=== PATIENT | female | born 1935 | race Caucasian/White ===

== ENCOUNTER → 2018-07-19 | Outpatient (CLI) | payer MEDICARE ==
[2018-07-19 18:08] LABS: BILIRUBIN,URINE NEGATIVE (NEGATIVE); CLARITY,URINE CLEAR; COLOR,URINE YELLOW; GLUCOSE, URINE (UA) NEGATIVE (NEGATIVE); KETONES,URINE TRACE (NEGATIVE); LEUKOCYTE ESTERASE ,URINE NEGATIVE (NEGATIVE); NITRITE,URINE NEGATIVE (NEGATIVE); PH,URINE 6.5 (5-9); PROTEIN,URINE NEGATIVE (NEGATIVE); SQUAMOUS EPITHELIAL CELL,UR RARE /HPF
== END ==
LOC: LAB FS 17:47
PROVIDERS: ATTEND Family Medicine
DX: N39.0 Urinary tract infection, site not specified (principal)
CPT/HCPCS: 81000

== ENCOUNTER → 2018-08-19 | Outpatient (CLI) | payer MEDICARE ==
[2018-08-19 22:13] LABS: BILIRUBIN,URINE NEGATIVE (NEGATIVE); CLARITY,URINE CLEAR; COLOR,URINE YELLOW; GLUCOSE, URINE (UA) NEGATIVE (NEGATIVE); KETONES,URINE NEGATIVE (NEGATIVE); LEUKOCYTE ESTERASE ,URINE NEGATIVE (NEGATIVE); NITRITE,URINE NEGATIVE (NEGATIVE); PROTEIN,URINE NEGATIVE (NEGATIVE); SQUAMOUS EPITHELIAL CELL,UR RARE /HPF
== END ==
LOC: LAB FS 22:01
PROVIDERS: ATTEND Family Medicine
DX: R39.15 Urgency of urination (principal)
CPT/HCPCS: 81000

== ENCOUNTER 2018-10-01 12:08 | Observation (INO) | payer MEDICARE ==
[~2018-10-01] VITALS: Ht 170.2 cm; Wt 48.3 kg
--- NOTE | 2018-10-01 12:24 | ED Syncope ---
General Stated Complaint: SYNCOPE Source of Information: Patient, EMS, RN Notes Reviewed Exam Limitations: Other (dementia) History of Present Illness Date Seen by Provider: October 01, 2018 Time Seen by Provider: 12:24 Initial Comments Patient brought to the ED p/ having an apparent syncopal episode while ambulating c/ her walker along c/ a NH aid. Patient very demented and of no assistance in providing any info, or history. Timing/Prior Episodes: No Prior History Symptoms Prior to Episode: Unknown Precipitating Factors: None Loss of Consciousness: Brief (Seconds) Current Symptoms: Back to Normal (thought to be) Allergies and Home Medications Allergies Coded Allergies: No Known Drug Allergies (Unverified , 10/01/18) Home Medications Acetaminophen 325 Mg Tablet, 650 MG PO BID, (Reported) TAKES 2 (325MG) TABLETS Acetaminophen 325 Mg Tablet, 325-650 MG PO Q6H PRN for PAIN-MILD, (Reported) Biotin 1,000 Mcg Tablet, 1,000 MCG PO DAILY, (Reported) Calcium Carbonate/Vitamin D3 1 Each Tablet, 1 TAB PO DAILY, (Reported) Citalopram Hydrobromide 20 Mg Tablet, 20 MG PO DAILY, (Reported) Digoxin 125 Mcg Tablet, 125 MCG PO DAILY, (Reported) Divalproex Sodium 125 Mg Cap, 125 MG PO BID, (Reported) Levalbuterol Tartrate 15 Gm Hfa.aer.ad, 2 PUFF INH Q8H PRN for SHORTNESS OF BREATH, (Reported) Memantine HCl 5 Mg Tablet, 5 MG PO BID, (Reported) Mirtazapine 15 Mg Tablet, 15 MG PO DAILY, (Reported) Multivitamin/Iron/Folic Acid 1 Each Tablet, 1 TAB PO DAILY, (Reported) Olanzapine 10 Mg Tablet, 10 MG PO HS, (Reported) Vit A/Vit C/Vit E/Zinc/Copper 1 Each Capsule, 1 CAP PO DAILY, (Reported) Patient Home Medication List Home Medication List Reviewed: Yes Review of Systems Constitutional: see HPI Cardiovascular: see HPI, syncope : No Physical Exam Vital Signs Vital Signs - First Documented 10/01/18 12:17 Temp 96.6 Pulse 70 Resp 12 B/P (MAP) 122/46 (71) Pulse Ox 96 O2 Delivery Room Air Capillary Refill : Height, Weight, BMI Height: '" Weight: lbs. oz. kg; BMI Method: General Appearance: No Apparent Distress, WD/WN HEENT: PERRL/EOMI, Pharynx Normal Cardiovascular: Regular Rate, Rhythm Respiratory: No Respiratory Distress Neurologic/Psychiatric: Alert; No Oriented x3; No Motor/Sensory Deficits, Normal Mood/Affect (per family) Motor/Sensory: No Motor Deficit, No Sensory Deficit Skin: Warm/Dry Progress/Results/Core Measures Results/Orders Lab Results Laboratory Tests Test 10/01/18 13:00 10/01/18 13:19 Range/Units White Blood Count 10.0 4.3-11.0 10^3/uL Red Blood Count 4.10 L 4.35-5.85 10^6/uL Hemoglobin 12.6 11.5-16.0 G/DL Hematocrit 39 35-52 % Mean Corpuscular Volume 95 80-99 FL Mean Corpuscular Hemoglobin 31 25-34 PG Mean Corpuscular Hemoglobin Concent 32 32-36 G/DL Red Cell Distribution Width 12.5 10.0-14.5 % Platelet Count 193 130-400 10^3/uL Mean Platelet Volume 9.7 7.4-10.4 FL Neutrophils (%) (Auto) 80 H 42-75 % Lymphocytes (%) (Auto) 14 12-44 % Monocytes (%) (Auto) 4 0-12 % Eosinophils (%) (Auto) 1 0-10 % Basophils (%) (Auto) 1 0-10 % Neutrophils # (Auto) 8.0 H 1.8-7.8 X 10^3 Lymphocytes # (Auto) 1.4 1.0-4.0 X 10^3 Monocytes # (Auto) 0.4 0.0-1.0 X 10^3 Eosinophils # (Auto) 0.1 0.0-0.3 10^3/uL Basophils # (Auto) 0.1 0.0-0.1 10^3/uL Sodium Level 142 135-145 MMOL/L Potassium Level 4.8 3.6-5.0 MMOL/L Chloride Level 97 L 98-107 MMOL/L Carbon Dioxide Level 33 H 21-32 MMOL/L Anion Gap 12 5-14 MMOL/L Blood Urea Nitrogen 30 H 7-18 MG/DL Creatinine 1.16 0.60-1.30 MG/DL Estimat Glomerular Filtration Rate 45 BUN/Creatinine Ratio 26 Glucose Level 100 70-105 MG/DL Calcium Level 10.3 H 8.5-10.1 MG/DL Corrected Calcium 10.5 H 8.5-10.1 MG/DL Magnesium Level 1.5 L 1.8-2.4 MG/DL Total Bilirubin 0.7 0.1-1.0 MG/DL Aspartate Amino Transf (AST/SGOT) 31 5-34 U/L Alanine Aminotransferase (ALT/SGPT) 29 0-55 U/L Alkaline Phosphatase 68 40-136 U/L Troponin T 23 H <=10 NG/L Total Protein 7.0 6.4-8.2 GM/DL Albumin 3.8 3.2-4.5 GM/DL Digoxin Level 1.58 0.80-2.00 NG/ML Valproic Acid (Depakene) Level 31.8 L 50.0-100.0 UG/ML Urine Color YELLOW Urine Clarity CLEAR Urine pH 7.0 5-9 Urine Specific [place] 1.015 L 1.016-1.022 Urine Protein 1+ H NEGATIVE Urine Glucose (UA) NEGATIVE NEGATIVE Urine Ketones 1+ H NEGATIVE Urine Nitrite NEGATIVE NEGATIVE Urine Bilirubin NEGATIVE NEGATIVE Urine Urobilinogen 0.2 NORMAL MG/DL Urine Leukocyte Esterase NEGATIVE NEGATIVE Urine RBC (Auto) NEGATIVE NEGATIVE Urine RBC 0-2 /HPF Urine WBC 0-2 /HPF Urine Squamous Epithelial Cells 0-2 /HPF Urine Crystals PRESENT H /LPF Urine Amorphous Sediment FEW JESUS PHOSPHATE H /LPF Urine Bacteria TRACE /HPF Urine Casts NONE /LPF Urine Mucus NONE /LPF Urine Other /HPF Urine Culture Indicated NO My Orders Orders - JOHNATHAN HUNTER DO Ct Head/Cervical Spine Wo (10/01/18 12:24) Chest 1 View Ap/Pa Only (10/01/18 12:24) Ekg Tracing (10/01/18 12:24) Monitor-Rhythm Ecg Trace Only (10/01/18 12:24) Cbc With Automated Diff (10/01/18 12:24) Comprehensive Metabolic Panel (10/01/18 12:24) Magnesium (10/01/18 12:24) Ua Culture If Indicated (10/01/18 12:24) Troponin T (10/01/18 12:24) Digoxin (10/01/18 13:24) Valproic Acid (10/01/18 13:24) Vital Signs/I&O 10/01/18 12:17 Temp 96.6 Pulse 70 Resp 12 B/P (MAP) 122/46 (71) Pulse Ox 96 O2 Delivery Room Air Initial ECG Impression Date: October 01, 2018 Initial ECG Impression Time: 12:30 Initial ECG Rate: 71 Initial ECG Rhythm: Normal Sinus Initial ECG Intervals LBBB Initial ECG Comparisson: No Previous ECG Available Diagnostic Imaging Diagonstic Imaging: Xray, CT Plain Films/CT/US/NM/MRI: chest (see report), head (nothing acute) Departure Impression Primary Impression: Syncope and collapse Additional Impressions: Elevated troponin Hypomagnesemia Dementia LBBB (left bundle branch block) Disposition: ADMITTED INPATIENT Condition: Stable Transfer Time Spoke to Accepting Phy: 15:05 Transfer Progress Notes Discussed the patient c/ both Dr. Cavanaugh (accepting Hospitalist), and Dr. Turcios (consulting Hat Sizer). Transfer Facility: [facility] Method of Transfer: EMS Departure-Patient Inst. Referrals: TERRI AVILES MD (PCP/Family) Primary Care Physician JOHNATHAN HUNTER DO October 01, 2018 12:24
--- OUTSIDE RECORDS SUMMARY | 2018-10-01 12:25 | XMS REPORT | Continuity of Care Document ---
Author Organization Unknown Address Unknown Allergies There is no data. Medications There is no data. Problems Date Dx Coded Attending Type Code Diagnosis Diagnosed By 10/23/2014 MAHESH WELCH MD, Ot V45.4 10/23/2014 MAHESH WELCH MD, Ot V67.09 10/24/2014 MAHESH WELCH MD, Ot V45.4 10/24/2014 MAHESH WELCH MD Ot V67.09 07/21/2018 TERRI AVILES MD Ot N39.0 URINARY TRACT INFECTION, SITE NOT SPECIF 08/11/2018 TERRI AVILES MD Ot N39.0 URINARY TRACT INFECTION, SITE NOT SPECIF 08/19/2018 MAHESH WELCH MD Ot V45.4 ARTHRODESIS STATUS 08/19/2018 MAHESH WELCH MD Ot V67.09 SURGERY FOLLOW-UP, OTHER SURGERY 08/19/2018 TERRI AVILES MD, Ot N39.0 URINARY TRACT INFECTION, SITE NOT SPECIF 08/20/2018 TERRI AVILES MD Ot R39.15 URGENCY OF URINATION 09/19/2018 TERRI AVILES MD Ot R39.15 URGENCY OF URINATION 09/19/2018 TERRI AVILES MD Ot R39.15 URGENCY OF URINATION Procedures There is no data. Results Test Result Range Complete urinalysis with reflex to culture - 07/19/18 17:25 Urine color determination YELLOW NRG Urine clarity determination CLEAR NRG Urine pH measurement by test strip 6.5 5-9 Specific gravity of urine by test strip 1.010 1.016- 1.022 Urine protein assay by test strip, semi-quantitative NEGATIVE NEGATIVE Urine glucose detection by automated test strip NEGATIVE NEGATIVE Erythrocytes detection in urine sediment by light microscopy NEGATIVE NEGATIVE Urine ketones detection by automated test strip TRACE NEGATIVE Urine nitrite detection by test strip NEGATIVE NEGATIVE Urine total bilirubin detection by test strip NEGATIVE NEGATIVE Urine urobilinogen measurement by automated test strip (mass/volume) 1.0 mg/dL NORMAL Urine leukocyte esterase detection by dipstick NEGATIVE NEGATIVE Automated urine sediment erythrocyte count by microscopy (number/high power field) NONE NRG Automated urine sediment leukocyte count by microscopy (number/high power field ) NONE NRG Bacteria detection in urine sediment by light microscopy NONE NRG Squamous epithelial cells detection in urine sediment by light microscopy RARE NRG Crystals detection in urine sediment by light microscopy NONE NRG Casts detection in urine sediment by light microscopy NONE NRG Mucus detection in urine sediment by light microscopy NEGATIVE NRG Complete urinalysis with reflex to culture NO NRG Complete urinalysis with reflex to culture - 08/19/18 22:00 Urine color determination YELLOW NRG Urine clarity determination CLEAR NRG Urine pH measurement by test strip 7.0 5-9 Specific gravity of urine by test strip 1.010 1.016- 1.022 Urine protein assay by test strip, semi-quantitative NEGATIVE NEGATIVE Urine glucose detection by automated test strip NEGATIVE NEGATIVE Erythrocytes detection in urine sediment by light microscopy NEGATIVE NEGATIVE Urine ketones detection by automated test strip NEGATIVE NEGATIVE Urine nitrite detection by test strip NEGATIVE NEGATIVE Urine total bilirubin detection by test strip NEGATIVE NEGATIVE Urine urobilinogen measurement by automated test strip (mass/volume) 1.0 mg/dL NORMAL Urine leukocyte esterase detection by dipstick NEGATIVE NEGATIVE Automated urine sediment erythrocyte count by microscopy (number/high power field) NONE NRG Automated urine sediment leukocyte count by microscopy (number/high power field ) NONE NRG Bacteria detection in urine sediment by light microscopy NONE NRG Squamous epithelial cells detection in urine sediment by light microscopy RARE NRG Crystals detection in urine sediment by light microscopy NONE NRG Casts detection in urine sediment by light microscopy NONE NRG Mucus detection in urine sediment by light microscopy NEGATIVE NRG Complete urinalysis with reflex to culture NO NRG Encounters ACCT No. Visit Date/Time Discharge Status Pt. Type Provider Facility Loc./Unit Complaint [id number] 08/19/2018 22:01:00 08/19/2018 23:59:59 CLS Outpatient TERRI AVILES MD [facility] LAB FS URINARY [id number] 07/19/2018 17:47:00 07/19/2018 23:59:59 CLS Outpatient TERRI AVILES MD [facility] LAB FS UTI [id number] 09/07/2014 12:41:00 09/07/2014 23:59:59 CLS Outpatient REBEKAH FRIED, MAHESH [facility] RAD STATUS POST LUMBAR FUSION
--- OUTSIDE RECORDS SUMMARY | 2018-10-01 12:25 | XMS REPORT | Clinical Summary ---
Author Author [facility] Organization [facility] Address Unknown Phone Unavailable Care Team Providers Care Dermatologist Name Role Phone PCP Unavailable Allergies Not on File Current Medications Not on file Active Problems Not on file Social History Tobacco Use Types Packs/Day Years Used Date Never Assessed Sex Assigned at Date Recorded Not on file Last Filed Vital Signs Not on file Plan of Treatment Not on file Results Not on filefrom Last 3 Months
[2018-10-01 13:17] LABS: HEMATOCRIT 39 % (35-52); HEMOGLOBIN 12.6 G/DL (11.5-16.0); MEAN CORPUSCULAR HEMOGLOBIN 31 PG (25-34); MEAN CORPUSCULAR HGB CONC 32 G/DL (32-36); MEAN CORPUSCULAR VOLUME 95 FL (80-99); MEAN PLATELET VOLUME 9.7 FL (7.4-10.4); PLATELET COUNT 193 10^3/uL (130-400); RED CELL DISTRIBUTION WIDTH 12.5 % (10.0-14.5)
[2018-10-01 13:18] LABS: BASOPHILS # (AUTO) 0.1 10^3/uL (0.0-0.1); BASOPHILS % (AUTO) 1 % (0-10); EOSINOPHILS # (AUTO) 0.1 10^3/uL (0.0-0.3); EOSINOPHILS % (AUTO) 1 % (0-10); LYMPHOCYTES # (AUTO) 1.4 X 10^3 (1.0-4.0); LYMPHOCYTES % (AUTO) 14 % (12-44); MONOCYTES # (AUTO) 0.4 X 10^3 (0.0-1.0); MONOCYTES % (AUTO) 4 % (0-12); NEUTROPHILS % (AUTO) 80 % (42-75)
--- NOTE | 2018-10-01 13:19 | Diagnostic Imaging Report ---
EXAMINATION: Portable erect AP chest at 12:45 p.m. INDICATION: Syncope. COMPARISON: There are no prior studies available for comparison. FINDINGS: The heart size is within normal limits. There is no sign of overt failure, pneumonia, or of a significant pleural effusion. However, there are vague areas of increased density overlying both upper lobes, particularly the right upper lobe. The kathleen also seem to be slightly retracted superiorly. These areas of abnormal density involving the upper lobes may be secondary to scar formation. There is no clear evidence for a neoplastic mass. Even so, unless there are previous chest exams available to demonstrate that these findings are stable, then CT of the chest would be recommended for further study. The mediastinum is not widened. The osseous structures are intact. There are numerous surgical clips overlying the gastroesophageal junction. Bilateral pedicle screws are also seen overlying the thoracolumbar junction. IMPRESSION: 1. There is no evidence for an acute cardiopulmonary abnormality. 2. The vague areas of increased density overlying the lung apices may be secondary to scar formation alone. The kathleen do seem to be slightly retracted superiorly, however. Additional considerations and recommendations as above. Dictated by: Dictated on workstation # [id number]
--- NOTE | 2018-10-01 13:38 | Diagnostic Imaging Report ---
PROCEDURE: CT head and CT cervical spine without contrast. TECHNIQUE: Multiple contiguous axial images were obtained through the brain and cervical spine without the use of intravenous contrast. Sagittal and coronal reformations through the cervical spine were then performed. Auto Exposure Controls were utilized during the CT exam to meet ALARA standards for radiation dose reduction. INDICATION: Syncope COMPARISON: There are no prior studies available for comparison. CT OF THE HEAD: There is no mass, shift of the midline or hemorrhage to suggest an acute intracranial abnormality. There is no sign of an asymmetric hyperdense vessel. The ventricles are dilated. The size of the ventricles is most likely due to the underlying cortical atrophy. Normal pressure hydrocephalus should also be considered however. The bone windows show no evidence for a fracture or for a destructive lesion. The orbits are symmetrical and within normal limits. The sinuses are generally clear. IMPRESSION: 1. There is no evidence for an acute intracranial abnormality. 2. If clinical concern regarding an underlying abnormality persists, then MRI would be recommended for further study. 3. The size of the ventricles is most likely due to the underlying cortical atrophy. However normal pressure hydrocephalus should also be considered. If further evaluation for NPH is desired, then a nuclear medicine cisternogram would be recommended. CT OF THE CERVICAL SPINE: The reconstructed parasagittal images show moderate degenerative disc and bony disease at C3-4 and fairly severe degenerative disc and bony disease at C6-7. The thecal sac seems fairly generous however and there is no evidence for a high-grade central stenosis at any level. There does appear to be bony overgrowth of the facets from C3 to C7, primarily on the right. There is no fracture or acute bony abnormality evident. There is no sign of retropharyngeal edema. The thyroid gland is unremarkable. There is considerable scar formation in both lung apices. This most likely accounts for the retraction of the kathleen superiorly on the plain film exam. There is no clear evidence for a mass. Even so, of the chest would be recommended for further evaluation. . IMPRESSION: 1. There is no evidence for an acute bony abnormality. There is no sign of a high-grade central stenosis either. 2. There is considerable scar formation in both lung apices. Considerations as above. The results were discussed with Dr. Bhatia in the ER. Dictated by: Dictated on workstation # [id number]
[2018-10-01 13:43] LABS: CLARITY,URINE CLEAR; COLOR,URINE YELLOW; GLUCOSE, URINE (UA) NEGATIVE (NEGATIVE); PROTEIN,URINE 1+ (NEGATIVE)
[2018-10-01 13:44] LABS: AMORPHOUS SEDIMENT,UR FEW AMOR PHOSPHATE /LPF; BACTERIA,URINE TRACE /HPF; BILIRUBIN,URINE NEGATIVE (NEGATIVE); KETONES,URINE 1+ (NEGATIVE); LEUKOCYTE ESTERASE ,URINE NEGATIVE (NEGATIVE); NITRITE,URINE NEGATIVE (NEGATIVE); RBC,URINE 0-2 /HPF; SQUAMOUS EPITHELIAL CELL,UR 0-2 /HPF; UROBILINOGEN,URINE 0.2 MG/DL (NORMAL); WBC,URINE 0-2 /HPF
[2018-10-01 13:54] LABS: POTASSIUM 4.8 MMOL/L (3.6-5.0)
[2018-10-01 13:55] LABS: BILIRUBIN,TOTAL 0.7 MG/DL (0.1-1.0); CALCIUM 10.3 MG/DL (8.5-10.1); CREATININE SERUM 1.16 MG/DL (0.60-1.30); MAGNESIUM 1.5 MG/DL (1.8-2.4)
[2018-10-01 13:56] LABS: ALBUMIN 3.8 GM/DL (3.2-4.5)
[2018-10-01 15:04] LABS: VALPROIC ACID 31.8 UG/ML (50.0-100.0)
--- NOTE | 2018-10-01 17:35 | NUR ---
ADRIAN SALEH admitted to room 407-1, with an admitting diagnosis of SYNCOPE, on 10/01/[address] [facility] via EMS, accompanied by EMS STAFF. ADRIAN SALEH introduced to surroundings, call light, bed controls, phone, TV, temperature control, lights, meal times, smoking policy, visitor policy, side rail policy, bathrooms and showers. Patient Rights given to patient in the handbook. ADRIAN SALEH verbalizes understanding that [facility] is not responsible for the loss or damage to any personal effects or valuables that are kept in the patients posession during their hospitalization. ADRIAN SALEH verbalizes understanding of Interdisciplinary Patient Education. Patient and/or family were informed about the Rapid Response Team and its purpose.
[2018-10-01 17:47] VITALS: BP_SYST 142; BP_SYST 178; BP_DIAS 68; BP_DIAS 76
[2018-10-01] MEDS ORDERED: MAGNESIUM 1 GM/100 ML IVPB 100 ML IV ONE (18:15)
[2018-10-01] MEDS ORDERED: CATHETER FLUSH 10 ML SYR IV PRN (18:15)
[2018-10-01] MEDS ORDERED: HALOPERIDOL 5 MG/ML (HALDOL) AMP IM PRN (18:30)
[2018-10-01] MEDS ORDERED: LORazepam INJ 2 MG/ML (ATIVAN) VIAL IVP PRN (18:30)
[2018-10-01] MEDS ORDERED: NITROGLYCERIN 2% OINT 1 GM UNIT DOSE PACKET TOP PRN (18:30)
[2018-10-01] MEDS ORDERED: LORazepam INJ 2 MG/ML (ATIVAN) VIAL IM PRN (18:30)
[2018-10-01] MEDS ORDERED: ACETAMINOPHEN 325 MG TABLET PO PRN (18:30)
[2018-10-01] MEDS ORDERED: fentaNYL INJECTION 100 MCG/2 ML AMP IVP PRN (18:30)
[2018-10-01] MEDS: NS IV 1000 ML 1,000 ML IV SCH (19:26)
[2018-10-01 20:36] VITALS: BP 155/81
[2018-10-02 00:29] VITALS: BP 156/67
[2018-10-02 04:00] VITALS: BP 153/85
[2018-10-02 05:48] LABS: BASOPHILS % (AUTO) 0 % (0-10); EOSINOPHILS # (AUTO) 0.1 10^3/uL (0.0-0.3); EOSINOPHILS % (AUTO) 1 % (0-10); HEMATOCRIT 36 % (35-52); HEMOGLOBIN 11.7 G/DL (11.5-16.0); LYMPHOCYTES # (AUTO) 0.8 X 10^3 (1.0-4.0); LYMPHOCYTES % (AUTO) 10 % (12-44); MEAN CORPUSCULAR HEMOGLOBIN 30 PG (25-34); MEAN CORPUSCULAR HGB CONC 33 G/DL (32-36); MEAN CORPUSCULAR VOLUME 94 FL (80-99); MEAN PLATELET VOLUME 9.7 FL (7.4-10.4); MONOCYTES # (AUTO) 0.6 X 10^3 (0.0-1.0); MONOCYTES % (AUTO) 8 % (0-12); NEUTROPHILS # (AUTO) 6.8 X 10^3 (1.8-7.8); NEUTROPHILS % (AUTO) 81 % (42-75); PLATELET COUNT 184 10^3/uL (130-400); RED CELL DISTRIBUTION WIDTH 12.7 % (10.0-14.5); WHITE BLOOD COUNT 8.4 10^3/uL (4.3-11.0)
[2018-10-02 06:05] LABS: ALBUMIN 3.8 GM/DL (3.2-4.5); BILIRUBIN,TOTAL 0.6 MG/DL (0.1-1.0); CALCIUM 9.5 MG/DL (8.5-10.1); POTASSIUM 4.3 MMOL/L (3.6-5.0); TOTAL PROTEIN 6.4 GM/DL (6.4-8.2)
[2018-10-02 08:00] VITALS: BP 170/77
[2018-10-02] MEDS: NS IV 1000 ML 1,000 ML IV SCH (08:52)
--- NOTE | 2018-10-02 09:53 | Consultation-Cardiology ---
HPI-Cardiology Cardiology Consultation: Date of Consultation 10/02/18 Date of Admission Attending Physician Jennifer Galo DO Admitting Physician Girish Sauer MD Consulting Physician Antione TURCIOS MD HPI: Time Seen by a Provider: 09:30 Chief Complaint: Syncope This is a 82-year-old lady who is a resident of [facility] who presented with an episode of syncope. She has history of dementia. Due to dementia and history is very limited. It is based on reviewing all the medical records available to me. No known past medical or cardiac history. Review of Systems-Cardiology Review of Systems Constitutional: As described under HPI; No As described under HPI, No no symptoms reported, No chills, No fever, No lightheadedness Eyes: No As described under HPI, No no symptoms reported, No blindness, No blurred vision, No contact lenses, No drainage, No decreased acuity, No foreign body sensation, No pain, No vision change Ears/Nose/Throat: No As described under HPI, No no symptoms reported, No chronic hearing loss, No ear discharge, No ear pain, No nasal drainage, No ulcerations Respiratory: No no symptoms reported; As described under HPI; No As described under HPI, No cough, No orthopnea, No shortness of breath, No SOB with excertion Cardiovascular: No no symptoms reported; As described under HPI; No As described under HPI, No chest pain, No edema, No irregular heart rate, No lightheadedness, No palpitations; syncope Gastrointestinal: No no symptoms reported, No As described under HPI, No abdomen distended, No abdominal pain, No blood streaked bowels, No constipation , No diarrhea, No nausea, No vomiting, No stool coloration changes Genitourinary: No As described under HPI, No burning, No dysuria, No discharge , No frequency, No flank pain, No hematuria, No urgency : No Skin: No rash, No skin related problems, No ulcerations Psychiatric/Neurological: No anxiety, No depression, No seizure, No focal weakness, No syncope Hematologic: No bleeding abnormalities DFT-Mcimgo-Jupacv Hx Patient Social History Alcohol Use: Denies Use Recreational Drug Use: No Smoking Status: Never a Smoker 2nd Hand Smoke Exposure: No Recent Foreign Travel: No Recent Infectious Disease Expo: No Hospitalization with Isolation: Denies Immunizations Up To Date Date of Pneumonia Vaccine: Feb 14, 2017 Past Medical History PMH As described under Assessment. Allergies and Home Medications Allergies Coded Allergies: No Known Drug Allergies (Unverified , 10/01/18) Home Medications Acetaminophen 325 Mg Tablet, 650 MG PO BID, (Reported) TAKES 2 (325MG) TABLETS Acetaminophen 325 Mg Tablet, 325-650 MG PO Q6H PRN for PAIN-MILD, (Reported) Biotin 1,000 Mcg Tablet, 1,000 MCG PO DAILY, (Reported) Calcium Carbonate/Vitamin D3 1 Each Tablet, 1 TAB PO DAILY, (Reported) Citalopram Hydrobromide 20 Mg Tablet, 20 MG PO DAILY, (Reported) Digoxin 125 Mcg Tablet, 125 MCG PO DAILY, (Reported) Divalproex Sodium 125 Mg Cap, 125 MG PO BID, (Reported) Levalbuterol Tartrate 15 Gm Hfa.aer.ad, 2 PUFF INH Q8H PRN for SHORTNESS OF BREATH, (Reported) Memantine HCl 5 Mg Tablet, 5 MG PO BID, (Reported) Mirtazapine 15 Mg Tablet, 15 MG PO DAILY, (Reported) Multivitamin/Iron/Folic Acid 1 Each Tablet, 1 TAB PO DAILY, (Reported) Olanzapine 10 Mg Tablet, 10 MG PO HS, (Reported) Vit A/Vit C/Vit E/Zinc/Copper 1 Each Capsule, 1 CAP PO DAILY, (Reported) Patient Home Medication List Home Medication List Reviewed: Yes Physical Exam-Cardiology Physical Exam Vital Signs/I&O 10/02/18 10/02/18 10/02/18 10/02/18 07:00 08:00 08:00 12:00 Temp 97.9 98.0 Pulse 80 77 82 Resp 18 18 B/P (MAP) 170/77 (108) 190/88 (122) Pulse Ox 96 96 O2 Delivery Room Air Room Air Room Air 10/02/18 12:57 Pulse 92 10/02/18 00:00 Intake Total 240 ml Balance 240 ml Capillary Refill : Less Than 3 Seconds Constitutional: appears stated age; No apparent distress; well-developed, well- nourished HEENT: PERRL; No discharge; hearing is well preserved, oral hygience is good; No ulceration, No xanthelasmas are seen Neck: No carotid bruit; carotid pulses are 2 + bilaterally Respiratory: No accessory muscle use, No respiratory distress, No chest tender , No chest expansion is symmetric; chest is bilaterally symmetric; No lungs clear to percussion; lungs clear to auscultation; No crackles, No rhonchi, No rales, No stridor, No wheezing, No pleural rub, No other Cardiovascular: regular rate-rhythm; No irregularly irregular, No extra beats, No parasternal heave is noted, No JVD, No edema, No bradycardia, No tachycardia , No point of maximal impulse, No cardiac thrills are palpable; S1 and S2; No gallop/S3, No gallop/S4, No diastolic murmur, No systolic murmur, No friction rub, No click, No other Gastrointestinal: No tender, No soft, No round, No distended, No pulsatile mass , No organomegaly, No guarding, No rebound, No tenderness, No hernia, No mass, No audible bowel sounds, No abnormal bowel sounds, No abdominal bruits, No spleenomegaly, No other Rectal: deferred Extremities: No normal range of motion, No non-tender, No normal inspection, No pedal edema, No calf tenderness, No normal capillary refill, No pelvis stable , No calf tenderness, No inflammation, No pedal edema, No slow capillary refill , No swelling, No other, No abrasion, No clubbing, No cyanosis, No ecchymosis, No laceration, No no lower extremity edema bilateral, No significant edema, No tenderness, No wound Neurologic/Psychiatric: no motor/sensory deficits, alert, disoriented x 3 Skin: No normal color, No warm/dry, No cyanosis, No cool, No diaphoresis, No damp, No ecchymosis, No jaundice, No mottled, No pallor, No rash, No tattoos/ piercings, No ulcerations, No rash on exposed areas, No ulcerations on exposed areas, No other Data Review Labs Laboratory Tests 10/01/18 18:05: Troponin I < 0.028 10/02/18 05:10: Sodium Level 141, Potassium Level 4.3, Chloride Level 101, Carbon Dioxide Level 29, Anion Gap 11, Blood Urea Nitrogen 30H, Creatinine 1.00, Estimat Glomerular Filtration Rate 53, BUN/Creatinine Ratio 30, Glucose Level 96, Calcium Level 9.5 , Corrected Calcium 9.7, Total Bilirubin 0.6, Aspartate Amino Transf (AST/SGOT) 27, Alanine Aminotransferase (ALT/SGPT) 27, Alkaline Phosphatase 65, Total Protein 6.4, Albumin 3.8 10/02/18 05:25: White Blood Count 8.4, Red Blood Count 3.84L, Hemoglobin 11.7, Hematocrit 36, Mean Corpuscular Volume 94, Mean Corpuscular Hemoglobin 30, Mean Corpuscular Hemoglobin Concent 33, Red Cell Distribution Width 12.7, Platelet Count 184, Mean Platelet Volume 9.7, Neutrophils (%) (Auto) 81H, Lymphocytes (%) (Auto) 10L , Monocytes (%) (Auto) 8, Eosinophils (%) (Auto) 1, Basophils (%) (Auto) 0, Neutrophils # (Auto) 6.8, Lymphocytes # (Auto) 0.8L, Monocytes # (Auto) 0.6, Eosinophils # (Auto) 0.1, Basophils # (Auto) 0.0 A/P-Cardiology Assessment/Admission Diagnosis Syncope, Dementia, Hypomagnesemia, Borderline Positive troponin, Left bundle branch block Plan Syncope, unclear etiology. Because of dementia difficult to take a history. Echocardiogram shows normal LV size and function. Dementia, deferred to the primary team. Hypomagnesemia, medication replacement is recommended. Borderline Positive troponin, borderline positive in [place] ER however troponin in our hospital are negative. Left bundle branch block, no records are available with suggest whether this is new left bundle branch block or old. However there is no evidence of an acute anterior AR. The other question is there in a patient with syncope who has left bundle branch block we can consider a pacemaker. However the patient has advanced dementia and no family is available to discuss. I will defer to the primary team and outpatient physicians. I'll be happy to assist if requested by the primary team and patient's primary care physician at the nursing facility. Thank you for your consultation. Please call me if you have any questions. Alejandro Turcios MD, FACP, FACC, FSCAI, FHRS, CCDS Interventional Cardiology Cardiac Electrophysiology Vascular Medicine and Endovascular Interventions Clinical Quality Measures DVT/VTE Risk/Contraindication: Risk Factor Score Per Nursin RFS Level Per Nursing on Admit: 4+=Very High Antione TURCIOS MD October 02, 2018 9:53 am
--- NOTE | 2018-10-02 10:01 | Short Stay Summary-Hospitalist ---
History of Present Illness HPI/Chief Complaint CC: Syncope HPI: This is an 82yoWF very severely demented who resides at a [facility], was sent to the ER at [place] due to Syncopal episode when she was walking to the lunch room. Severe dementia precludes any other details. Family requested her to be evaluated and she has since been admitted. All troponins were negative and due to the severity of her dementia there is not any type of aggressive cardiac care required at this time due to the fact of the significant dementia. She in reality is a hospice candidate. I had to give Ativan and Haldol due to the agitation. All other workup was negative. She will be discharged. Source: old records Exam Limitations: other (dementia) Date Seen 10/02/18 Time Seen by a Provider: 09:00 Attending Physician Jennifer Galo Pankaj K MD Referring Physician Date of Admission October 01, 2018 at 15:15 Home Medications & Allergies Home Medications Reviewed patient Home Medication Reconciliation performed by pharmacy medication reconciliations field service technician and/or nursing. Patients Allergies have been reviewed. Allergies Allergies Coded Allergies No Known Drug Allergies (Unverified10/01/18) Past Hpzfgrl-Dkoxou-Xafske Hx Past Med/Social Hx: Reviewed Nursing Past Med/Soc Hx, Reviewed and Corrections made Patient Social History Marrital Status: single Alcohol Use: Denies Use Recreational Drug Use: No Smoking Status: Never a Smoker 2nd Hand Smoke Exposure: No Recent Foreign Travel: No Contact w/other who traveled: No Recent Hopitalizations: No Recent Infectious Disease Expo: No Immunizations Up To Date Date of Pneumonia Vaccine: Feb 14, 2017 Seasonal Allergies Seasonal Allergies: Yes Past Medical History Cardiac: Atrial Fibrillation Neurological: Dementia Gastrointestinal: Ulcer Cancer: Skin History of Blood Disorders: No Review of Systems Constitutional: other (unobtainable) Physical Exam Physical Exam Vital Signs Vital Signs - First Documented 10/01/18 12:17 Temp 96.6 Pulse 70 Resp 12 B/P (MAP) 122/46 (71) Pulse Ox 96 O2 Delivery Room Air Capillary Refill : Less Than 3 Seconds Height, Weight, BMI Height: 5'7.00" Weight: 106lbs. 9.0oz. 48.604491fq; BMI Method:Actual General Appearance: No Apparent Distress, WD/WN, Chronically ill, Thin HEENT: PERRL/EOMI, Pharynx Normal Respiratory: Lungs Clear, Normal Breath Sounds, No Accessory Muscle Use, No Respiratory Distress Cardiovascular: Regular Rate, Rhythm, No Edema Neurologic/Psychiatric: Alert; No Oriented x3; No Motor/Sensory Deficits, Normal Mood/Affect (per family), Disoriented Skin: Warm/Dry Results Results/Procedures Labs Laboratory Tests 10/01/18 13:00 10/02/18 05:10 10/02/18 05:25 Patient resulted labs reviewed. Short Stay Diagnosis Discharge Diagnosis-Short Stay Admission Diagnosis Syncope Severe dementia Final Discharge Diagnosis Syncope Severe dementia Conclusion Plan Plan: DC if ok with Dr Turcios Diagnosis/Problems Diagnosis/Problems (1) Syncope and collapse Status: Acute (2) Dementia Status: Acute Qualifiers: Qualified Codes: G30.9 - Alzheimer's disease, unspecified; F02.81 - Dementia in other diseases classified elsewhere with behavioral disturbance Clinical Quality Measures DVT/VTE Risk/Contraindication: Risk Factor Score Per Nursin RFS Level Per Nursing on Admit: 4+=Very High JENNIFER GALO DO October 02, 2018 10:01
[2018-10-02] MEDS ORDERED: CALC1TAB94 PO (10:18)
[2018-10-02] MEDS ORDERED: DIVA125C PO (10:18)
[2018-10-02] MEDS ORDERED: DIGO125T18 PO (10:18)
[2018-10-02] MEDS ORDERED: MEMA5TAB16 PO (10:18)
[2018-10-02] MEDS ORDERED: ACET325T38 PO ×2 (10:18)
[2018-10-02] MEDS ORDERED: NFBIOT1000 PO (10:18)
[2018-10-02] MEDS ORDERED: MULT-983 PO (10:18)
[2018-10-02] MEDS ORDERED: VIT1CAPS33 PO (10:18)
[2018-10-02] MEDS ORDERED: MIRT15TA6 PO (10:18)
[2018-10-02] MEDS ORDERED: CITA20TA9 PO (10:18)
[2018-10-02] MEDS ORDERED: OLAN10TA3 PO (10:18)
[2018-10-02] MEDS ORDERED: NF-XOP-HFA INH (10:18)
--- NOTE | 2018-10-02 10:25 | NUR ---
UPDATED MED REC WITH PHYSICIAN'S ORDERS FROM [facility].
[2018-10-02 12:00] VITALS: BP 190/88
--- NOTE | 2018-10-02 14:59 | NUR ---
ECHO IS NORMAL. VIRAJ SAID OK TO DC FROM HIS STAND POINT. VERIFIED WITH DR MOON.
--- NOTE | 2018-10-02 15:00 | NUR ---
[facility] NOTIFIED OF PATIENT DISCHARGE. THEY ARE SENDING TRANSPORTATION. REPORT GIVEN TO RN.
[2018-10-02 16:05] VITALS: BP 190/88
--- NOTE | 2018-10-02 16:05 | NUR ---
IV REMOVED WITH CATHETER TIP INTACT. PATIENT'S GRANDDAUGHTER IS PRESENT TO PICK PATIENT UP. PATIENT DRESSED AND BELONGINGS GATHERED. HOME MEDICATIONS SENT WITH PATIENT ALONG WITH DISCHARGE INSTRUCTIONS.
== END 2018-10-02 16:05 ==
LOC: EDUNIT# 12:08 → ER FS 12:22 → 4TH 15:15
PROVIDERS: ADMIT Internal Medicine; ATTEND Internal Medicine
DX: R55 Syncope and collapse (principal); G30.9 Alzheimer's disease, unspecified; F02.81 Dementia in other diseases classified elsewhere, unspecified severity, with behavioral disturbance; I48.91 Unspecified atrial fibrillation; E83.42 Hypomagnesemia; Z66 Do not resuscitate; Z85.828 Personal history of other malignant neoplasm of skin; Z79.899 Other long term (current) drug therapy; R79.89 Other specified abnormal findings of blood chemistry
CPT/HCPCS: 36415; 70450; 71045; 72125; 80053; 80162; 80164; 81000; 83735; 84484; 85025; 93005; 93041; 93306

== ENCOUNTER 2018-11-28 09:12 | Inpatient (IN) | payer MEDICARE ==
[~2018-11-28] VITALS: Ht 180.3 cm; Wt 53.2 kg
[~2018-11-28 09:12] MED LIST: ACET325T38 PO; CALC1TAB94 PO; CITA20TA9 PO; DIGO125T18 PO; DIVA125C PO; MEMA5TAB16 PO; MIRT15TA6 PO; MULT-983 PO; NF-XOP-HFA INH; NFBIOT1000 PO; OLAN10TA3 PO; VIT1CAPS33 PO
--- NOTE | 2018-11-28 09:14 | NUR ---
LAB IN ROOM AT THIS TIME.
--- NOTE | 2018-11-28 09:27 | ED Fall/Injury ---
General Chief Complaint: Trauma-Non Activation Stated Complaint: FALL; HIP INJ Nursing Triage Note: Pt arrived by [facility] ([facility]) from [facility]. Pt had fallen earlier in the middle of the night. Fall was unwitnessed and unknown of time. half-way moved pt and moved her to wheelchair and pt was complaining of hip pain and holding left hip. When patient was moved she hollered and was holding left hip. When pressing on hip sometimes she hollered, sometimes she didn't. Pt has dementia. Source: patient, EMS, RN notes reviewed Exam Limitations: other (dementia) History of Present Illness Date Seen by Provider: Nov 28, 2018 Time Seen by Provider: 09:20 Initial Comments Patient brought to the ED by EMS from local nursing facility where she reportedly fell during the night and is now c/o left hip pain. Patient a poor historian secondary to dementia. Location Injury Occurred: left hip injury Occurred: other (during the night) Injuries/Pain Location: lower extremity (left hip) Context: unknown Loss of Consciousness: unsure Modifying Factors: Worse With Jarring, Worse With Movement; Improves With Rest Associated Symptoms (Fall): Denies Symptoms (x/ as noted.) Allergies and Home Medications Allergies Coded Allergies: No Known Drug Allergies (Unverified , 10/01/18) Home Medications Acetaminophen 325 Mg Tablet, 650 MG PO BID, (Reported) TAKES 2 (325MG) TABLETS Acetaminophen 325 Mg Tablet, 325-650 MG PO Q6H PRN for PAIN-MILD, (Reported) Biotin 1,000 Mcg Tablet, 1,000 MCG PO DAILY, (Reported) Calcium Carbonate/Vitamin D3 1 Each Tablet, 1 TAB PO DAILY, (Reported) Citalopram Hydrobromide 20 Mg Tablet, 20 MG PO DAILY, (Reported) Digoxin 125 Mcg Tablet, 125 MCG PO DAILY, (Reported) Divalproex Sodium 125 Mg Cap, 125 MG PO BID, (Reported) Levalbuterol Tartrate 15 Gm Hfa.aer.ad, 2 PUFF INH Q8H PRN for SHORTNESS OF BREATH, (Reported) Memantine HCl 5 Mg Tablet, 5 MG PO BID, (Reported) Mirtazapine 15 Mg Tablet, 15 MG PO DAILY, (Reported) Multivitamin/Iron/Folic Acid 1 Each Tablet, 1 TAB PO DAILY, (Reported) Olanzapine 10 Mg Tablet, 10 MG PO HS, (Reported) Vit A/Vit C/Vit E/Zinc/Copper 1 Each Capsule, 1 CAP PO DAILY, (Reported) Patient Home Medication List Home Medication List Reviewed: Yes Review of Systems Review of Systems Constitutional: see HPI Musculoskeletal: see HPI, other (apparent left hip pain) All Other Systems Reviewed Negative Unless Noted: Yes (Negative excepted noted.) Past Dhnfrgv-Aaykut-Ekcoep Hx Patient Social History Alcohol Use: Denies Use Recreational Drug Use: No Smoking Status: Never a Smoker 2nd Hand Smoke Exposure: No Recent Foreign Travel: No Contact w/Someone Who Travel: No Recent Infectious Disease Expo: No Recent Hopitalizations: No Physical Abuse: No Sexual Abuse: No Mistreated: No Fear: No Immunizations Up To Date Date of Pneumonia Vaccine: Feb 14, 2017 Seasonal Allergies Seasonal Allergies: Yes Past Medical History Surgeries: Yes (Rt hip surgery) Respiratory: Yes COPD Cardiac: Yes Atrial Fibrillation Neurological: Yes Dementia Genitourinary: No Gastrointestinal: Yes Ulcer Musculoskeletal: No Endocrine: No HEENT: No Cancer: Yes Skin Psychosocial: No Blood Disorders: No Physical Exam Vital Signs Vital Signs - First Documented 11/28/18 09:12 Temp 98.8 Pulse 83 Resp 18 B/P (MAP) 165/55 (91) Pulse Ox 96 O2 Delivery Room Air Capillary Refill : Less Than 3 Seconds Height, Weight, BMI Height: 5'10.00" Weight: 110lbs. 0oz. 49.054893is; BMI Method:Estimated General Appearance: no apparent distress, cachetic, thin HEENT: normal ENT inspection Neck: normal inspection Cardiovascular: regular rate, rhythm Respiratory: no respiratory distress Rectal: deferred Extremities: other ((+) left hip pain c/ palpation; obvious pain c/ attempted movement of LLE.) Neurologic/Psychiatric: no motor/sensory deficits, alert; No oriented x 3; depressed affect Skin: warm/dry [place] Com[place] Score Best Eye Response: (4) Open Spontaneously Best Verbal Response: (4) Confused Conversation Best Motor Response: (5) Localizes to Pain Progress/Results/Core Measures Results/Orders Lab Results Laboratory Tests Test 11/28/18 10:25 11/28/18 10:38 Range/Units White Blood Count 9.2 4.3-11.0 10^3/uL Red Blood Count 4.04 L 4.35-5.85 10^6/uL Hemoglobin 12.2 11.5-16.0 G/DL Hematocrit 39 35-52 % Mean Corpuscular Volume 96 80-99 FL Mean Corpuscular Hemoglobin 30 25-34 PG Mean Corpuscular Hemoglobin Concent 32 32-36 G/DL Red Cell Distribution Width 12.5 10.0-14.5 % Platelet Count 316 130-400 10^3/uL Mean Platelet Volume 8.8 7.4-10.4 FL Neutrophils (%) (Auto) 87 H 42-75 % Lymphocytes (%) (Auto) 7 L 12-44 % Monocytes (%) (Auto) 6 0-12 % Eosinophils (%) (Auto) 0 0-10 % Basophils (%) (Auto) 0 0-10 % Neutrophils # (Auto) 8.0 H 1.8-7.8 X 10^3 Lymphocytes # (Auto) 0.7 L 1.0-4.0 X 10^3 Monocytes # (Auto) 0.5 0.0-1.0 X 10^3 Eosinophils # (Auto) 0.0 0.0-0.3 10^3/uL Basophils # (Auto) 0.0 0.0-0.1 10^3/uL Neutrophils % (Manual) 88 % Lymphocytes % (Manual) 5 % Monocytes % (Manual) 5 % Eosinophils % (Manual) 0 % Basophils % (Manual) 1 % Band Neutrophils 1 % Prothrombin Time 13.3 12.2-14.7 SEC INR Comment 1.0 0.8-1.4 Activated Partial Thromboplast Time 27 24-35 SEC Sodium Level 143 135-145 MMOL/L Potassium Level 4.4 3.6-5.0 MMOL/L Chloride Level 98 98-107 MMOL/L Carbon Dioxide Level 34 H 21-32 MMOL/L Anion Gap 11 5-14 MMOL/L Blood Urea Nitrogen 33 H 7-18 MG/DL Creatinine 0.94 0.60-1.30 MG/DL Estimat Glomerular Filtration Rate 57 BUN/Creatinine Ratio 35 Glucose Level 149 H 70-105 MG/DL Calcium Level 9.6 8.5-10.1 MG/DL Corrected Calcium 9.8 8.5-10.1 MG/DL Total Bilirubin 0.4 0.1-1.0 MG/DL Aspartate Amino Transf (AST/SGOT) 20 5-34 U/L Alanine Aminotransferase (ALT/SGPT) 23 0-55 U/L Alkaline Phosphatase 70 40-136 U/L Total Protein 7.1 6.4-8.2 GM/DL Albumin 3.8 3.2-4.5 GM/DL Urine Color YELLOW Urine Clarity SLT CLOUDY Urine pH 8.5 5-9 Urine Specific [place] 1.010 L 1.016-1.022 Urine Protein NEGATIVE NEGATIVE Urine Glucose (UA) NEGATIVE NEGATIVE Urine Ketones TRACE H NEGATIVE Urine Nitrite POSITIVE H NEGATIVE Urine Bilirubin NEGATIVE NEGATIVE Urine Urobilinogen 2.0 NORMAL MG/DL Urine Leukocyte Esterase 1+ H NEGATIVE Urine RBC (Auto) NEGATIVE NEGATIVE Urine RBC NONE /HPF Urine WBC 5-10 H /HPF Urine Squamous Epithelial Cells RARE /HPF Urine Crystals NONE /LPF Urine Bacteria LARGE H /HPF Urine Casts NONE /LPF Urine Mucus NONE /LPF Urine Culture Indicated YES My Orders Orders - JOHNATHAN HUNTER DO Pelvis With Left Hip 2-3 View (11/28/18 09:23) Ed Iv/Invasive Line Start (11/28/18 09:45) Ekg Tracing (11/28/18 09:45) Cbc With Automated Diff (11/28/18 09:45) Comprehensive Metabolic Panel (11/28/18 09:45) Protime With Inr (11/28/18 09:45) Partial Thromboplastin Time (11/28/18 09:45) Ua Culture If Indicated (11/28/18 09:45) Huang Cath (11/28/18 09:45) Chest 1 View Ap/Pa Only (11/28/18 09:45) Manual Differential (11/28/18 10:25) Urine Culture (11/28/18 10:38) Vital Signs/I&O 11/28/18 11/28/18 09:12 09:30 Temp 98.8 98.8 Pulse 83 83 Resp 18 18 B/P (MAP) 165/55 (91) 165/55 (91) Pulse Ox 96 96 O2 Delivery Room Air Room Air Blood Pressure Mean: 91 Diagnostic Imaging Diagonstic Imaging: Xray Plain Films/CT/US/NM/MRI: chest (noting acute.), pelvis, hip ((+) left femoral neck fx) Departure Impression Primary Impression: Fracture of hip, left, closed Additional Impressions: Dementia UTI (urinary tract infection) Disposition: ADMITTED INPATIENT Condition: Stable Admissions Decision to Admit Reason: Admit from ER (General) Decision to Admit/Date: Nov 28, 2018 Time/Decision to Admit Time: 11:00 Transfer Time Spoke to Accepting Phy: 11:00 Transfer Progress Notes Discussed the patient c/ both Dr. Galo (Hospitalist), who has accepted the patient for transfer/admission, and Dr. Hernandez (Orthopedics), who plans on taking her to surgery tomorrow afternoon. Transfer Facility: [facility] Method of Transfer: EMS Departure-Patient Inst. Referrals: TERRI AVILES MD (PCP/Family) Primary Care Physician JOHNATHAN HUNTER DO Nov 28, 2018 09:27
--- NOTE | 2018-11-28 09:30 | NUR ---
Report given to ESME Hewitt at this time. Care was transferred.
--- NOTE | 2018-11-28 10:04 | Diagnostic Imaging Report ---
Indication: Left hip pain after fall. Comparison: None available. Technique: AP pelvis with AP and frog-leg views of the left hip. Findings: There is an acute simple fracture through the neck of the femur. There is a somewhat oblique axial orientation involving the subcapital region and extending into the midportion of the femur. 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 Given the prominence of the lesser trochanter, there is likely a small degree of external rotation of the femoral shaft. Right hip hemiarthroplasty is partially imaged. No traumatic diastases within the SI joints or symphysis pubis. Impression: 1. Acute, proximally migrated simple fracture of the left femoral neck. Dictated by: Dictated on workstation # [id number]
--- NOTE | 2018-11-28 10:10 | Diagnostic Imaging Report ---
Indication: Left hip fracture Portable chest 9:42 AM Heart size and pulmonary vascular normal. Lungs are clear. There are no effusions or pneumothoraces. Impression: Negative chest Dictated by: Dictated on workstation # [id number]
[2018-11-28 10:38] LABS: BASOPHILS % (AUTO) 0 % (0-10); EOSINOPHILS % (AUTO) 0 % (0-10); HEMATOCRIT 39 % (35-52); HEMOGLOBIN 12.2 G/DL (11.5-16.0); LYMPHOCYTES % (AUTO) 7 % (12-44); MEAN CORPUSCULAR HEMOGLOBIN 30 PG (25-34); MEAN CORPUSCULAR HGB CONC 32 G/DL (32-36); MEAN CORPUSCULAR VOLUME 96 FL (80-99); MEAN PLATELET VOLUME 8.8 FL (7.4-10.4); MONOCYTES % (AUTO) 6 % (0-12); NEUTROPHILS % (AUTO) 87 % (42-75); PLATELET COUNT 316 10^3/uL (130-400); RED CELL DISTRIBUTION WIDTH 12.5 % (10.0-14.5); WHITE BLOOD COUNT 9.2 10^3/uL (4.3-11.0)
[2018-11-28 10:39] LABS: LYMPHOCYTES # (AUTO) 0.7 X 10^3 (1.0-4.0); MONOCYTES # (AUTO) 0.5 X 10^3 (0.0-1.0)
--- NOTE | 2018-11-28 10:40 | NUR ---
Attempted to call son at this time for an update and to notify that patient is in the ER and did not answer.
[2018-11-28 10:50] LABS: CLARITY,URINE SLT CLOUDY; COLOR,URINE YELLOW; PH,URINE 8.5 (5-9)
[2018-11-28 10:51] LABS: BACTERIA,URINE LARGE /HPF; BILIRUBIN,URINE NEGATIVE (NEGATIVE); GLUCOSE, URINE (UA) NEGATIVE (NEGATIVE); KETONES,URINE TRACE (NEGATIVE); LEUKOCYTE ESTERASE ,URINE 1+ (NEGATIVE); NITRITE,URINE POSITIVE (NEGATIVE); PROTEIN,URINE NEGATIVE (NEGATIVE); SQUAMOUS EPITHELIAL CELL,UR RARE /HPF
[2018-11-28 10:53] LABS: PROTHROMBIN TIME PATIENT 13.3 SEC (12.2-14.7)
[2018-11-28 10:56] LABS: POTASSIUM 4.4 MMOL/L (3.6-5.0)
[2018-11-28 10:57] LABS: ALBUMIN 3.8 GM/DL (3.2-4.5); BILIRUBIN,TOTAL 0.4 MG/DL (0.1-1.0); CALCIUM 9.6 MG/DL (8.5-10.1); CREATININE SERUM 0.94 MG/DL (0.60-1.30); TOTAL PROTEIN 7.1 GM/DL (6.4-8.2)
[2018-11-28 11:03] LABS: BAND NEUTROPHILS 1 %; BASOPHILS % (MANUAL) 1 %; EOSINOPHILS % (MANUAL) 0 %; LYMPHOCYTES % (MANUAL) 5 %; MONOCYTES % (MANUAL) 5 %; NEUTROPHILS % (MANUAL) 88 %
[2018-11-28] MEDS ORDERED: cefTRIAXone FOR IV USE 1,000 MG in WATER (STERILE) FOR INJECTION 10 ML IV ONE (11:30)
--- NOTE | 2018-11-28 11:56 | NUR ---
Attempted call to work # for son and no answer.
--- NOTE | 2018-11-28 11:57 | NUR ---
Attempted call to son at home # which is his cell. Message left to call [facility]
--- NOTE | 2018-11-28 12:02 | NUR ---
Called Grandson Yan cell number and reached him. He was advised of Grandmother's presence in ER and attempting to reach his dad. Yan will go tell his father in order to get him out her before transfer if possible.
--- NOTE | 2018-11-28 12:30 | NUR ---
Son, Elan Sanchez has called to speak with RN. Spoke to Erin VICTORIA and did consent verbally to all treatment and transfer to [facility].
--- NOTE | 2018-11-28 12:45 | NUR ---
Call to [facility] to dispatch to request transfer for pt to [facility] Rm 423. [facility] is currently assisting [facility] and in route to [facility].
[2018-11-28] MEDS ORDERED: CITA10TA12 PO (13:10)
[2018-11-28] MEDS ORDERED: OLAN2.5T3 PO (13:14)
[2018-11-28] MEDS ORDERED: MIRT30TA6 PO (13:18)
[2018-11-28] MEDS ORDERED: DIVA-74 PO (13:22)
[2018-11-28] MEDS ORDERED: MELA1TAB27 PO (13:25)
--- NOTE | 2018-11-28 13:30 | NUR ---
Pending transfer as [facility] is unavaible still at this time.
--- NOTE | 2018-11-28 14:02 | NUR ---
Tyrell jack in [facility] - 11/28/18 at 1403 by MEAGHAN PT COMPLAINS OF ITCHING. DR FERNANDEZ.
--- NOTE | 2018-11-28 14:09 | NUR ---
[facility] is back in service and request a delay in transport r/t heavy rain.
[2018-11-28 14:48] LABS: VALPROIC ACID 32.9 UG/ML (50.0-100.0)
--- NOTE | 2018-11-28 15:00 | NUR ---
[facility] here and transfer of care to them with depart to [place] [facility] Rm 423.
--- NOTE | 2018-11-28 15:05 | NUR ---
Notified 4th floor pt has departed Skip ELDER.
[2018-11-28 15:49] VITALS: BP 158/70
--- NOTE | 2018-11-28 15:49 | NUR ---
ADRIAN SALEH Kay admitted to room 423-1, with an admitting diagnosis of left hip fx, on 11/28/18 from ER [facility] stretcher, accompanied by EMS staff son in room present waiting .ADRIAN SALEH introduced to surroundings, call light, bed controls, phone, TV, temperature control, lights, meal times, smoking policy, visitor policy, side rail policy, bathrooms and showers. Patient Rights given to patient in the handbook. ADRIAN SALEH verbalizes understanding that [facility] is not responsible for the loss or damage to any personal effects or valuables that are kept in the patients posession during their hospitalization. The following Patient Care Plans and discharge were discussed with the patient and family . ADRIAN SALEH verbalizes understanding of Interdisciplinary Patient Education. Patient and family were informed about the Rapid Response Team and its purpose. patient confused son present verbalizes understanding
[2018-11-28] MEDS ORDERED: CALCIUM CARBONATE 500 MG (TUMS) TAB.CHEW PO PRN (16:00)
[2018-11-28] MEDS ORDERED: diphenhydrAMINE 25 MG TAB (BENADRYL) PO PRN (16:00)
[2018-11-28] MEDS ORDERED: ACETAMINOPHEN 500 MG TAB (TYLENOL) PO PRN (16:00)
[2018-11-28] MEDS ORDERED: LOPERAMIDE 2 MG (IMODIUM) TABLET PO PRN (16:00)
[2018-11-28] MEDS ORDERED: fentaNYL INJECTION 100 MCG/2 ML AMP IVP PRN (16:00)
[2018-11-28] MEDS ORDERED: DOCUSATE SODIUM 100 MG (COLACE) CAP PO PRN (16:00)
[2018-11-28] MEDS ORDERED: ONDANSETRON 4 MG/2 ML (SDV) Z0FRAN IVP PRN (16:00)
[2018-11-28] MEDS ORDERED: MELATONIN 3 MG TABLET PO PRN (16:00)
[2018-11-28] MEDS ORDERED: ONDANSETRON 4 MG (ZOFRAN) ORAL DISSOLVE TAB PO PRN (16:00)
[2018-11-28] MEDS ORDERED: POLYETHYLENE GLYCOL 17 GM (MIRALAX) PACK PO PRN (16:00)
[2018-11-28] MEDS ORDERED: CATHETER FLUSH 10 ML SYR IV PRN (16:45)
[2018-11-28] MEDS: NS IV 1000 ML 1,000 ML IV SCH (17:01)
[2018-11-28] MEDS: SENNA W/DOCUSATE (SENOKOT S) TABLET PO SCH (20:05)
[2018-11-28] MEDS: HYDROcodone/APAP 5 MG/325 MG (LORTAB) TAB PO PRN (20:05)
[2018-11-28 20:25] VITALS: BP 159/68
[2018-11-29] VITALS (14 sets, daily range): BP systolic 127–187; BP diastolic 55–80
[2018-11-29 05:11] LABS: BASOPHILS % (AUTO) 0 % (0-10); EOSINOPHILS % (AUTO) 1 % (0-10); HEMATOCRIT 33 % (35-52); HEMOGLOBIN 10.5 G/DL (11.5-16.0); LYMPHOCYTES # (AUTO) 0.8 X 10^3 (1.0-4.0); LYMPHOCYTES % (AUTO) 11 % (12-44); MEAN CORPUSCULAR HEMOGLOBIN 30 PG (25-34); MEAN CORPUSCULAR HGB CONC 32 G/DL (32-36); MEAN CORPUSCULAR VOLUME 96 FL (80-99); MEAN PLATELET VOLUME 8.7 FL (7.4-10.4); MONOCYTES # (AUTO) 0.7 X 10^3 (0.0-1.0); MONOCYTES % (AUTO) 10 % (0-12); NEUTROPHILS # (AUTO) 5.5 X 10^3 (1.8-7.8); NEUTROPHILS % (AUTO) 78 % (42-75); PLATELET COUNT 259 10^3/uL (130-400); RED CELL DISTRIBUTION WIDTH 12.8 % (10.0-14.5); WHITE BLOOD COUNT 7.1 10^3/uL (4.3-11.0)
[2018-11-29 05:38] LABS: ALANINE AMINOTRANSFERASE 19 U/L (0-55); ALBUMIN 3.1 GM/DL (3.2-4.5); ALKALINE PHOSPHATASE 54 U/L (40-136); BILIRUBIN,TOTAL 0.4 MG/DL (0.1-1.0); BUN/CREATININE RATIO 36; CALCIUM 8.6 MG/DL (8.5-10.1); CARBON DIOXIDE 30 MMOL/L (21-32); CHLORIDE 104 MMOL/L (98-107); CREATININE SERUM 0.81 MG/DL (0.60-1.30); GFR ESTIMATED > 60; GLUCOSE 101 MG/DL (70-105); SODIUM 142 MMOL/L (135-145); TOTAL PROTEIN 5.6 GM/DL (6.4-8.2)
[2018-11-29] MEDS: NS IV 1000 ML 1,000 ML IV SCH ×2 (06:11→20:33)
--- NOTE | 2018-11-29 06:48 | NUR ---
surgical bath given and aleven drg applied to coccyx
[2018-11-29] MEDS: SENNA W/DOCUSATE (SENOKOT S) TABLET PO SCH ×2 (09:00→19:35)
[2018-11-29] MEDS ORDERED: fentaNYL INJECTION 100 MCG/2 ML AMP ONE (09:49)
[2018-11-29] MEDS ORDERED: GENTAMICIN 40 MG/ML 2 ML INJ SDV ONE (09:50)
[2018-11-29] MEDS ORDERED: KETAMINE/NaCl 50 MG/5 ML SYRINGE ONE (09:51)
--- NOTE | 2018-11-29 10:08 | NUR ---
Patient to surgery with surgery and family followed to surgery waiting area to talk to Dr. Hernandez.
[2018-11-29] MEDS ORDERED: ceFAZolin INJECTION 1,000 MG ONE (10:27)
--- NOTE | 2018-11-29 10:32 | History & Physicial ---
History of Present Illness History of Present Illness Reason for visit/HPI Severely demented 83 yo WF noted to have inability to bear weight. XR demonstrated displaced femoral neck fracture. She has a history of R hip fracture with hemiarthroplasty. Family has opted for surgical treatment. Date of Admission Nov 28, 2018 at 11:39 Date Seen by a Provider: Nov 29, 2018 Time Seen by a Provider: 10:30 I consulted on this patient on 11/29/18 10:29 Attending Physician Jennifer Galo DO Admitting Physician Girish Sauer MD Consult Allergies and Home Medications Allergies Coded Allergies: No Known Drug Allergies (Unverified , 10/01/18) Home Medications Acetaminophen 325 Mg Tablet, 650 MG PO Q6H PRN for PAIN-MILD, (Reported) Biotin 1,000 Mcg Tablet, 1,000 MCG PO DAILY, (Reported) Calcium Carbonate/Vitamin D3 1 Each Tablet, 1 TAB PO DAILY, (Reported) Citalopram Hydrobromide 10 Mg Tablet, 10 MG PO DAILY, (Reported) Digoxin 125 Mcg Tablet, 125 MCG PO DAILY, (Reported) Divalproex Sodium 125 Mg Cap, 125 MG PO DAILY, (Reported) Divalproex Sodium 250 Mg Tablet.dr, 250 MG PO HS, (Reported) Melatonin/Pyridoxine HCl (B6) 1 Each Tablet, 3 MG PO HS, (Reported) Memantine HCl 5 Mg Tablet, 5 MG PO BID, (Reported) Mirtazapine 30 Mg Tablet, 30 MG PO HS, (Reported) Multivitamin/Iron/Folic Acid 1 Each Tablet, 1 TAB PO DAILY, (Reported) Olanzapine 10 Mg Tablet, 10 MG PO HS, (Reported) Olanzapine 2.5 Mg Tablet, 2.5 MG PO DAILY, (Reported) Vit A/Vit C/Vit E/Zinc/Copper 1 Each Capsule, 1 CAP PO DAILY, (Reported) Patient Home Medication List Home Medication List Reviewed: Yes Past [place]-Mekrfu-Exfchg Hx Patient Social History Alcohol Use: Denies Use Recreational Drug Use: No Smoking Status: Never a Smoker 2nd Hand Smoke Exposure: No Physical Abuse Screen: No Sexual Abuse: No Recent Foreign Travel: No (Son answered question) Contact w/other who traveled: No (Son answer question) Recent Hopitalizations: No Recent Infectious Disease Expo: No (Son answer question) Immunizations Up To Date Date of Pneumonia Vaccine: Feb 14, 2017 Seasonal Allergies Seasonal Allergies: Yes Surgeries Yes (Rt hip surgery) Respiratory Yes Cardiovascular Yes Atrial Fibrillation Neurological Yes Dementia Genitourinary No Gastrointestinal Yes Ulcer Musculoskeletal No Endocrine History of Endocrine Disorders: No HEENT History of HEENT Disorders: No Cancer Yes Skin Psychosocial History of Psychiatric Problem: No Blood Transfusions History of Blood Disorders: No Family Medical History Family Hx: Arthritis Cardiovascular disease Dementia Diabetes mellitus Hypertension Myocardial infarction Psychosocial problem Thyroid disease Review of Systems Constitutional: no symptoms reported Physical Exam Vital Signs Vital Signs - First Documented 11/28/18 09:12 Temp 98.8 Pulse 83 Resp 18 B/P (MAP) 165/55 (91) Pulse Ox 96 O2 Delivery Room Air Capillary Refill : Less Than 3 SecondsLess Than 3 Seconds Height, Weight, BMI Height: 5'11.00" Weight: 117lbs. 3.0oz. 53.136078jp; 16.3 BMI Method:Estimated General Appearance: No Apparent Distress Extremity: Other (short, externally rotated LLE, NVSI, 2/4 DP, PT pulses, skin intact) Assessment/Plan Assessment and Plan ASSESSMENT: displaced L femoral neck fracture PLAN: L hip hemiarthroplasty post op DVT prophylaxis and mobilization consult medicine for medical management Admission Diagnosis Admission Status: Inpatient Order (span 2 midnights) Reason for Inpatient Admission: pain control Clinical Quality Measures DVT/VTE Risk/Contraindication: Risk Factor Score Per Nursin RFS Level Per Nursing on Admit: 4+=Very High ADELFO LANDIS DO Nov 29, 2018 10:32
[2018-11-29] MEDS ORDERED: PROMETHAZINE INJ 25 MG/ML (PHENERGAN) AMP ONE (10:36)
[2018-11-29] MEDS ORDERED: morphine INJ 10 MG/ML 1ML (SYR OR VIAL) ONE (10:36)
[2018-11-29] MEDS ORDERED: MEPERIDINE (DEMEROL) INJ 50 MG/ML ONE (10:36)
[2018-11-29] MEDS ORDERED: HYDROmorphone 2 MG/ML VIAL (DILAUDID) ONE (10:36)
[2018-11-29] MEDS ORDERED: proPOfol 200 MG/20 ML (DIPRIVAN) VIAL IV ONE (10:56)
[2018-11-29] MEDS ORDERED: SUCCINYLCHOLINE INJ 100 MG/5 ML SYR ONE (10:56)
[2018-11-29] MEDS ORDERED: ONDANSETRON 4 MG/2 ML (SDV) Z0FRAN ONE (10:56)
[2018-11-29] MEDS ORDERED: ROCURONIUM 10 MG/ML 5 ML SYRINGE IV ONE (10:56)
[2018-11-29] MEDS ORDERED: SEVOFLURANE (ULTANE) 15 ML INHAL SOLN ONE (10:56)
[2018-11-29] MEDS ORDERED: BUPIVACAINE 0.5% 30 ML (SENSORCAINE) VIAL ONE (11:00)
[2018-11-29] MEDS ORDERED: ceFAZolin INJECTION 1,000 MG VIAL IV ONE (11:15)
[2018-11-29] MEDS ORDERED: LACTATED RINGERS 1,000 ML IV PRN (11:17)
[2018-11-29] MEDS ORDERED: GLYCOPYRROLATE 0.2 MG/ML (ROBINUL) 2 ML VIAL ONE (11:34)
[2018-11-29] MEDS ORDERED: NEOSTIGMINE 3 MG/3 ML VIAL ONE (11:34)
[2018-11-29] MEDS ORDERED: BACITRACIN OINTMENT 28 GM TUBE ONE (11:39)
[2018-11-29] MEDS ORDERED: PHENYLEPHRINE 100 MCG/ML 10 ML (ANESTHESIA) SYR ONE (11:40)
[2018-11-29] MEDS ORDERED: HYDROmorphone 2 MG/ML VIAL (DILAUDID) IV ONE (12:30)
[2018-11-29] MEDS ORDERED: ONDANSETRON 4 MG/2 ML (SDV) Z0FRAN IVP PRN (12:30)
--- NOTE | 2018-11-29 12:42 | Consultation - Hospitalist ---
HPI History of Present Illness: HPI/Chief Complaint Chief complaint: Left hip fracture in need of repair History of present illness this is an 83-year-old fdc patient of in [place] who has a history of severe dementia requiring fdc placement permanently suffered a fall and was found to have sustained a left hip fracture. She was taken to surgery by Dr. Hernandez and underwent an uncomplicated repair. At this current time patient cannot provide any details and no family is at the bedside. Source: family, RN/MD, fdc records Exam Limitations: clinical condition Date Seen 11/29/18 Attending Physician Jennifer Galo Pankaj K MD Referring Physician Date of Admission Nov 28, 2018 at 11:39 Home Medications & Allergies Home Medications Reviewed patient Home Medication Reconciliation performed by pharmacy medication reconciliations safe technician and/or nursing. Patients Allergies have been reviewed. Allergies Allergies Coded Allergies No Known Drug Allergies (Unverified10/01/18) Past Lwdszog-Rgdpup-Dugvrw Hx Past Med/Social Hx: Reviewed Nursing Past Med/Soc Hx, Reviewed and Corrections made Patient Social History Alcohol Use: Denies Use Recreational Drug Use: No Smoking Status: Never a Smoker 2nd Hand Smoke Exposure: No Physical Abuse Screen: No Sexual Abuse: No Recent Foreign Travel: No (Son answered question) Contact w/other who traveled: No (Son answer question) Recent Hopitalizations: No Recent Infectious Disease Expo: No (Son answer question) Immunizations Up To Date Date of Pneumonia Vaccine: Feb 14, 2017 Seasonal Allergies Seasonal Allergies: Yes Past Medical History Cardiac: Atrial Fibrillation Neurological: Dementia Gastrointestinal: Ulcer Cancer: Skin History of Blood Disorders: No Family History Arthritis Cardiovascular disease Dementia Diabetes mellitus Hypertension Myocardial infarction Psychosocial problem Thyroid disease Review of Systems Constitutional: see HPI Physical Exam Physical Exam Vital Signs Vital Signs - First Documented 11/28/18 09:12 Temp 98.8 Pulse 83 Resp 18 B/P (MAP) 165/55 (91) Pulse Ox 96 O2 Delivery Room Air Capillary Refill : Less Than 3 SecondsLess Than 3 Seconds Height, Weight, BMI Height: 5'11.00" Weight: 117lbs. 3.0oz. 53.892089la; 16.3 BMI Method:Estimated General Appearance: No Apparent Distress, WD/WN, Chronically ill, Thin, Other (sedated) Respiratory: Lungs Clear, Normal Breath Sounds Cardiovascular: Regular Rate, Rhythm Extremity: Other (short, externally rotated LLE, NVSI, 2/4 DP, PT pulses, skin intact) Neurologic/Psychiatric: Disoriented Results Results/Procedures Labs Laboratory Tests 11/28/18 10:25 11/29/18 04:36 Patient resulted labs reviewed. Assessment/Plan Assessment and Plan Assess & Plan/Chief Complaint Assessment: Status post left hip fracture sustained in a fall at the fdc requiring uncomplicated repair today POD #0 Severe dementia History of atrial fibrillation Postop anemia Advanced age Poor prognosis Plan: Pain control Monitor labs Overall prognosis is poor Diagnosis/Problems Diagnosis/Problems (1) Fracture of hip, left, closed Status: Acute Qualifiers: Encounter type: initial encounter Qualified Codes: S72.002A - Fracture of unspecified part of neck of left femur, initial encounter for closed fracture (2) Dementia Status: Chronic Qualifiers: Dementia type: Alzheimer's disease Alzheimer's disease onset: unspecified onset Dementia behavioral disturbance: without behavioral disturbance Qualified Codes: G30.9 - Alzheimer's disease, unspecified; F02.80 - Dementia in other diseases classified elsewhere without behavioral disturbance Clinical Quality Measures DVT/VTE Risk/Contraindication: Risk Factor Score Per Nursin RFS Level Per Nursing on Admit: 4+=Very High JENNIFER GALO DO Nov 29, 2018 12:42
--- NOTE | 2018-11-29 12:43 | Physical Therapy Progress Note ---
Therapy Progress Note PT orders received. Pt remains in recovery at this time. Will complete evaluation 11/30/2018 RAYMOND GREEN PT Nov 29, 2018 12:42
--- NOTE | 2018-11-29 13:10 | NUR ---
Patient returned from surgery and report received from [facility] recovery room nurse at 1310. Family present in room after procedure as well.
--- NOTE | 2018-11-29 17:04 | Diagnostic Imaging Report ---
Indication: Followup left hip fracture. Comparison: 11/28/2018. Discussion: Single AP view of the pelvis was obtained postoperatively. Interval placement of a bipolar left hip prosthesis. Bipolar right hip prosthesis is also present. Alignment is anatomic. No hardware complications. No acute fracture. No unexpected radiopaque foreign body. Impression: 1. Left hip prosthesis within normal postoperative limits. Dictated by: Dictated on workstation # [id number]
[2018-11-29] MEDS ORDERED: ceFAZolin 2 GM IV Premixed 50 ML IV SCH (19:00)
[2018-11-29] MEDS: ENOXAPARIN 30 MG/0.3 ML (LOVENOX) SYR SC SCH (19:32)
--- NOTE | 2018-11-29 19:48 | OPERATIVE REPORT ---
DATE OF SERVICE: 11/29/2018 SURGEON: Adelfo Hernandez DO MEDICAL RECORDS MANAGER: PETE Burdick. This is a medically necessary procedure. Assistance was necessary for retraction of vital neurovascular structures. Without an preschool assistant director, the procedure would not be possible. PREOPERATIVE DIAGNOSES: 1. Displaced left femoral neck fracture. 2. Osteoporosis. POSTOPERATIVE DIAGNOSES: 1. Displaced left femoral neck fracture. 2. Osteoporosis. PROCEDURE PERFORMED: Left hip hemiarthroplasty. COMPLICATIONS: None. SPECIMEN SENT: None. ESTIMATED BLOOD LOSS: Minimal. ANESTHESIA: General endotracheal tube anesthesia with local anesthetic. SPECIMENS SENT: None. HISTORY OF PRESENT ILLNESS: The patient is a very demented 83-year-old female who presented to the ER with inability to bear weight. X-rays demonstrated a displaced femoral neck fracture. Orthopedics was consulted and family was agreeable to operative intervention with a goal of mobilizing her. DESCRIPTION OF PROCEDURE: The patient was identified by name on wrist band in the preoperative holding area. Her operative site was signed, consent was signed. Antibiotics were given. She was taken to the operating room theater, placed under general endotracheal tube anesthesia and transferred to the operating room table with a lateral position with the left side up. She was prepped and draped in the usual sterile fashion. Formal timeout was conducted. Incision was then made over the lateral proximal femur. I proceeded with a standard posterolateral approach to the femur, placed a self-retaining retractor. I made a femoral neck cut. I then removed the femoral head and sized it. I used a canal introducer to open up the canal and I used a series of broaches to broach out the proximal femur. I then irrigated the wound, obtained the appropriate Synthes prosthesis, which I then seated into the proximal femur. I then obtained the bipolar component and tapped it onto the neck portion of the femoral component. At this point, I relocated the hemiarthroplasty. I took the patient's leg through a series of range of motion and I had good stability with good yazidi of leg length and no instability on shuck exam. At this point, I irrigated the wound, maintained hemostasis and I closed the wound utilizing Ti-Cron for the capsular stitch and then 0 Vicryls followed by bridgette for skin. I applied dressings with the patient in an abduction pillow and took her in the supine position to the PACU where she awoke without incident. She tolerated the procedure well. PLAN: At this time is to get x-rays in PACU. I will get her out of bed on postop day #1. Weightbearing as tolerated. Medicine is consulted for management of medical issues and she will be placed on postoperative DVT prophylaxis. Job ID: [id number] DocumentID: [id number] Dictated Date: 11/29/2018 11:53:39 Biomedical Engineer Date: 11/29/2018 19:47:26 Dictated By: ADELFO HERNANDEZ DO
[2018-11-30] VITALS: BP 149/86
[2018-11-30] MEDS: NS IV 1000 ML 1,000 ML IV SCH (03:11)
[2018-11-30 04:00] VITALS: BP 156/69
[2018-11-30 05:46] LABS: BASOPHILS % (AUTO) 0 % (0-10); EOSINOPHILS # (AUTO) 0.1 10^3/uL (0.0-0.3); EOSINOPHILS % (AUTO) 1 % (0-10); HEMATOCRIT 34 % (35-52); HEMOGLOBIN 10.7 G/DL (11.5-16.0); LYMPHOCYTES # (AUTO) 1.1 X 10^3 (1.0-4.0); LYMPHOCYTES % (AUTO) 12 % (12-44); MEAN CORPUSCULAR HEMOGLOBIN 30 PG (25-34); MEAN CORPUSCULAR HGB CONC 32 G/DL (32-36); MEAN CORPUSCULAR VOLUME 95 FL (80-99); MEAN PLATELET VOLUME 8.5 FL (7.4-10.4); MONOCYTES % (AUTO) 11 % (0-12); NEUTROPHILS # (AUTO) 7.3 X 10^3 (1.8-7.8); NEUTROPHILS % (AUTO) 77 % (42-75); PLATELET COUNT 238 10^3/uL (130-400); RED CELL DISTRIBUTION WIDTH 12.5 % (10.0-14.5); WHITE BLOOD COUNT 9.6 10^3/uL (4.3-11.0)
[2018-11-30 06:07] LABS: ALANINE AMINOTRANSFERASE 17 U/L (0-55); ALBUMIN 2.9 GM/DL (3.2-4.5); ALKALINE PHOSPHATASE 46 U/L (40-136); BILIRUBIN,TOTAL 0.4 MG/DL (0.1-1.0); BUN/CREATININE RATIO 33; CALCIUM 8.8 MG/DL (8.5-10.1); CARBON DIOXIDE 29 MMOL/L (21-32); CHLORIDE 103 MMOL/L (98-107); CREATININE SERUM 0.75 MG/DL (0.60-1.30); GFR ESTIMATED > 60; GLUCOSE 93 MG/DL (70-105); POTASSIUM 4.4 MMOL/L (3.6-5.0); SODIUM 141 MMOL/L (135-145); TOTAL PROTEIN 5.4 GM/DL (6.4-8.2)
--- NOTE | 2018-11-30 07:42 | Physical Therapy Evaluation ---
PT Evaluation-General Medical Diagnosis Admission Date Nov 28, 2018 at 11:39 Medical Diagnosis: left hip fx Onset Date: Nov 28, 2018 Therapy Diagnosis Therapy Diagnosis: abnormal gait Height/Weight Height (Feet): 5 Height (Inches): 11.00 Weight (Pounds): 117 Weight (Ounces): 3.0 Precautions Precautions/Isolations: Fall Prevention, Standard Precautions Weight Bear Status Right Lower Extremity: Right Full Weight Bearing Left Lower Extremity: Left Weight Bearing/Tolerated Medical History Pertinent Medical History: Dementia, HTN Current History Pt had a fall and sustained a left hip fx that has been repaired with a hemiarthroplasty. Social History Home: [facility] Prior/Core FIM Prior Level of Function Therapy Code Descriptions/Definitions Functional [place] Measure: 0=Not Assessed/NA 4=Minimal Assistance 1=Total Assistance 5=Supervision or Setup 2=Maximal Assistance 6=Modified [place] 3=Moderate Assistance 7=Complete [place] Therapy Quality Codes: 6 Independent with activity with or without an assistive device 5 Patient requires set up or clean up by helper. Patient completes activity by themselves 4 Supervision or touching assist (CGA). Susan provide cues , steadying assist 3 The helper provides less than half the effort to complete the activity 2 The helper provides more than half the effort to complete the activity 1 Dependent. The helper does all the effort to complete an activity 7 Patient refused to complete or attempt activity 9 The patient did not perform the activity before the current illness or injury 88 Not attempted due to Medical conditions or safety concerns Functional Abilities and Goals: Independent: Patient completed the activities by him/herself, with or without an assistive device, with no assistance from a helper. Needed Some Help: Patient needed partial assistance from another person to complete activities. Dependent: A helper completed the activities for the patient. Unknown: Not Applicable: pt unable to provide a history, she resided at an [facility], so is is presumed that she was mod indep with upright mobility. PT Evaluation-Current Subjective Responds to her name. Limited verbalization. Objective Patient Orientation: Unable to Assess Problem Solving: Poor Attachments: Oxygen, Huang Catheter, IV ROM/Strength ROM Lower Extremities WFL AAROM Strength Lower Extremities unable to assess Integumentary/Posture Bowel Incontinence: Yes Bladder Incontinence: Huang Cath Neuromuscular (Tone, Coordination, Reflexes) intact Transfers Therapy Code Descriptions/Definitions Functional [place] Measure: 0=Not Assessed/NA 4=Minimal Assistance 1=Total Assistance 5=Supervision or Setup 2=Maximal Assistance 6=Modified [place] 3=Moderate Assistance 7=Complete [place] Transfers (B, C, W/C) (FIM): 1 Supine to/from Sit: 1 Sit to/from Stand: 1 Pt is dependent for all mobility. She follows cues somewhat but unable to effectively assist with the transfer. Dependent to transfer to sit EOB, mod assist for balacne sitting EOB; and SPT dependent. Stood pt for nurse tech to clean her ana area as she had been incont of bowel. Pt able to stand and bear weight primarily through the right LE. She did activate hip extensors in standing with cues. Up in chair post treatment withoxygen in situ and needs met. Nurse tech present and was to order her breakfast. Abd pillow b/t her legs. Assessment/Needs Post fall with hip fx; hemiarthroplasty. Will benefit from skilled PT to progress functional mobility to allow her to better interact with her environment. Rehab Potential: Fair PT Shelter Goals Shelter Goals PT Shelter Goals Time Frame: Dec 08, 2018 Transfers (B,C,W/C) (FIM): 4 Gait (FIM): 2 Gait distance (FIM): 2=175-74 ft Gait Assistive Device: FWW PT Plan Problem List Problem List: Activity Tolerance, Functional Strength, Safety, Balance, Gait, Transfer, Bed Mobility Treatment/Plan Treatment Plan: Continue Plan of Care Treatment Plan: Bed Mobility, Education, Functional Activity Ana, Functional Strength, Gait, Safety, Therapeutic Exercise, Transfers Treatment Duration: Dec 08, 2018 Frequency: 11 times per week Estimated Hrs Per Day: .5 hour per day Patient and/or Family Agrees t: Yes Safety Risks/Education Patient Education: Safety Issues Teaching Methods: Demonstration Response to Teaching: Reinforcement Needed Discharge Recommendations Therapy D/C Recommendations: [facility] (TCU/NH) Time/GCodes Time In: 720 Time Out: 748 Total Billed Treatment Time: 28 Total Billed Treatment visit EVM 15 FA 13 RAYMOND GREEN PT Nov 30, 2018 07:42
[2018-11-30 08:00] VITALS: BP 123/62
--- NOTE | 2018-11-30 08:31 | Anesthesia-General Post-Op ---
General Patient Condition Mental Status/LOC: Same as Preop Cardiovascular: Satisfactory Nausea/Vomiting: Absent Respiratory: Satisfactory Pain: Controlled Complications: Absent Post Op Complications Complications None Follow Up Care/Instructions Patient Instructions None needed. Anesthesia/Patient Condition Patient Condition Patient is doing well, no complaints, stable vital signs, no apparent adverse anesthesia problems. No complications reported per nursing. D/C home per [facility] Criteria: MELISSA Cox CRNA Nov 30, 2018 08:31
[2018-11-30] MEDS: ENOXAPARIN 30 MG/0.3 ML (LOVENOX) SYR SC SCH ×2 (10:32→19:23)
[2018-11-30] MEDS: SENNA W/DOCUSATE (SENOKOT S) TABLET PO SCH ×2 (10:32→19:53)
--- NOTE | 2018-11-30 11:04 | Progress Note ---
Subjective Date Seen by a Provider: Nov 30, 2018 Time Seen by a Provider: 11:01 Subjective/Events-last exam POD #1 s/p left hip hemiarthorplasty. Patient awake laying in bed, reports some left hip pain. This is tolerable. She has been up with PT. She has no other complaints at this time. Review of Systems Cardiovascular: No: Chest Pain Gastrointestinal: No: Nausea, Vomiting Musculoskeletal: leg pain Objective Exam Vital Signs Date Time Temp Pulse Resp B/P (MAP) Pulse Ox O2 Delivery O2 Flow Rate FiO2 11/30/18 06:57 95 Nasal Cannula 3.00 11/30/18 04:00 97.5 72 14 156/69 (98) 100 Nasal Cannula 3.00 11/30/18 00:00 97.7 79 16 149/86 (107) 98 Nasal Cannula 3.00 11/29/18 20:42 Nasal Cannula 3.00 11/29/18 19:25 97.1 89 14 127/66 (86) 98 Room Air 11/29/18 16:42 Nasal Cannula 3.00 11/29/18 15:51 97.8 84 14 157/70 (99) 98 Room Air 11/29/18 13:23 97.2 73 14 176/77 (110) 98 Room Air 11/29/18 13:10 97.4 16 98 Nasal Cannula 3 11/29/18 13:10 Nasal Cannula 3 11/29/18 13:00 18 98 Nasal Cannula 3 11/29/18 13:00 Nasal Cannula 3 11/29/18 12:50 14 98 Nasal Cannula 3 11/29/18 12:45 OxyMask 5 11/29/18 12:40 14 98 OxyMask 5 11/29/18 12:30 16 99 OxyMask 5 11/29/18 12:30 OxyMask 5 11/29/18 12:22 OxyMask 10 11/29/18 12:22 100 OxyMask 10 11/29/18 12:20 14 100 T Piece 10 11/29/18 12:10 16 99 T Piece 10 11/29/18 12:10 T Piece 10 11/29/18 12:07 T Piece 10 11/29/18 12:07 97.2 12 98 T Piece 10 I & O 11/30/18 06:59 Intake Total 3250 ml Output Total 1075 ml Balance 2175 ml Capillary Refill : Less Than 3 SecondsLess Than 3 Seconds General Appearance: No Apparent Distress Respiratory: No Accessory Muscle Use, No Respiratory Distress Peripheral Pulses: 2+ Dorsalis Pedis (R), 2+ Left Dors-Pedis (L) Neurologic/Psychiatric: Alert, No Motor/Sensory Deficits Skin: Normal Color, Warm/Dry Results Lab Laboratory Tests 11/30/18 05:40: White Blood Count 9.6, Red Blood Count 3.57L, Hemoglobin 10.7L, Hematocrit 34L, Mean Corpuscular Volume 95, Mean Corpuscular Hemoglobin 30, Mean Corpuscular Hemoglobin Concent 32, Red Cell Distribution Width 12.5, Platelet Count 238, Mean Platelet Volume 8.5, Neutrophils (%) (Auto) 77H, Lymphocytes (%) (Auto) 12, Monocytes (%) (Auto) 11, Eosinophils (%) (Auto) 1, Basophils (%) (Auto) 0, Neutrophils # (Auto) 7.3, Lymphocytes # (Auto) 1.1, Monocytes # (Auto) 1.0, Eosinophils # (Auto) 0.1, Basophils # (Auto) 0.0, Sodium Level 141, Potassium Level 4.4, Chloride Level 103, Carbon Dioxide Level 29, Anion Gap 9, Blood Urea Nitrogen 25H, Creatinine 0.75, Estimat Glomerular Filtration Rate > 60, BUN/Creatinine Ratio 33, Glucose Level 93, Calcium Level 8.8, Corrected Calcium 9.7, Total Bilirubin 0.4, Aspartate Amino Transf (AST/SGOT) 19, Alanine Aminotransferase (ALT/SGPT) 17, Alkaline Phosphatase 46, Total Protein 5.4L, Albumin 2.9L Microbiology 11/28/18 MRSA Screen - Final, Complete MRSA not isolated 11/28/18 Urine Culture - Preliminary, Resulted Corynebacterium coyleae Assessment/Plan Assessment/Plan Assess & Plan/Chief Complaint assessment: pod #1 s/p left hemiarthroplasty dementia htn plan: continue current treatment PT dvt prophylaxis will likely need rehab vs snf, case management consulted Clinical Quality Measures DVT/VTE Risk/Contraindication: Risk Factor Score Per Nursin RFS Level Per Nursing on Admit: 4+=Very High LEYDA SOTO Nov 30, 2018 11:04
[2018-11-30 12:00] VITALS: BP 160/58
--- NOTE | 2018-11-30 13:33 | Progress Note - Hospitalist ---
Subjective HPI/CC On Admission Date Seen by Provider: Nov 30, 2018 Time Seen by Provider: 12:45 Chief complaint: Left hip fracture in need of repair History of present illness this is an 83-year-old [facility] patient of Dr.G scott in [place] who has a history of severe dementia requiring [facility] placement permanently suffered a fall and was found to have sustained a left hip fracture. She was taken to surgery by Dr. Hernandez and underwent an uncomplicated repair. At this current time patient cannot provide any details and no family is at the bedside. Subjective/Events-last exam Patient sedated most of the time Does open her eyes when I talk to her Does not appear to be in any pain Unsure of the recoverability of this advanced age individual status post hip fracture repair She has chronic severe dementia Review of Systems Neurological: Confusion Objective Exam Vital Signs Vital Signs Date Time Temp Pulse Resp B/P (MAP) Pulse Ox O2 Delivery O2 Flow Rate FiO2 11/30/18 16:48 97.9 71 14 162/62 (95) 97 Nasal Cannula 3.00 Capillary Refill : Less Than 3 SecondsLess Than 3 Seconds General Appearance: No Apparent Distress, Chronically ill, Thin Respiratory: No Accessory Muscle Use, No Respiratory Distress Cardiovascular: Regular Rate, Rhythm Extremity: Other (short, externally rotated LLE, NVSI, 2/4 DP, PT pulses, skin intact) Neurologic/Psychiatric: Alert, No Motor/Sensory Deficits Skin: Normal Color, Warm/Dry Results/Procedures Lab Laboratory Tests 11/30/18 05:40 Patient resulted labs reviewed. Assessment/Plan Assessment and Plan Assess & Plan/Chief Complaint Assessment: Status post left hip fracture sustained in a fall at the [facility] requiring uncomplicated repair today POD #1 Severe dementia History of atrial fibrillation Postop anemia Advanced age Poor prognosis Plan: Pain control Monitor labs Overall prognosis is poor Diagnosis/Problems Diagnosis/Problems (1) Fracture of hip, left, closed Status: Acute Qualifiers: Encounter type: initial encounter Qualified Codes: S72.002A - Fracture of unspecified part of neck of left femur, initial encounter for closed fracture (2) Dementia Status: Chronic Qualifiers: Dementia type: Alzheimer's disease Alzheimer's disease onset: unspecified onset Dementia behavioral disturbance: without behavioral disturbance Qualified Codes: G30.9 - Alzheimer's disease, unspecified; F02.80 - Dementia in other diseases classified elsewhere without behavioral disturbance Clinical Quality Measures DVT/VTE Risk/Contraindication: Risk Factor Score Per Nursin RFS Level Per Nursing on Admit: 4+=Very High CHAIM MOON DO Nov 30, 2018 13:33
[2018-11-30 16:48] VITALS: BP 162/62
[2018-11-30 19:54] VITALS: BP 152/58
[2018-12-01] VITALS: BP 150/68
[2018-12-01 04:00] VITALS: BP 150/68
[2018-12-01 06:04] LABS: BASOPHILS % (AUTO) 0 % (0-10); EOSINOPHILS # (AUTO) 0.1 10^3/uL (0.0-0.3); EOSINOPHILS % (AUTO) 1 % (0-10); HEMATOCRIT 30 % (35-52); HEMOGLOBIN 9.4 G/DL (11.5-16.0); LYMPHOCYTES # (AUTO) 0.7 X 10^3 (1.0-4.0); LYMPHOCYTES % (AUTO) 10 % (12-44); MEAN CORPUSCULAR HEMOGLOBIN 30 PG (25-34); MEAN CORPUSCULAR HGB CONC 31 G/DL (32-36); MEAN CORPUSCULAR VOLUME 95 FL (80-99); MONOCYTES # (AUTO) 0.5 X 10^3 (0.0-1.0); MONOCYTES % (AUTO) 8 % (0-12); NEUTROPHILS # (AUTO) 5.1 X 10^3 (1.8-7.8); NEUTROPHILS % (AUTO) 80 % (42-75); PLATELET COUNT 245 10^3/uL (130-400); RED CELL DISTRIBUTION WIDTH 12.6 % (10.0-14.5); WHITE BLOOD COUNT 6.4 10^3/uL (4.3-11.0)
[2018-12-01 06:15] LABS: ALANINE AMINOTRANSFERASE 12 U/L (0-55); ALBUMIN 2.7 GM/DL (3.2-4.5); ALKALINE PHOSPHATASE 47 U/L (40-136); BILIRUBIN,TOTAL 0.4 MG/DL (0.1-1.0); BUN/CREATININE RATIO 37; CALCIUM 8.4 MG/DL (8.5-10.1); CARBON DIOXIDE 30 MMOL/L (21-32); CHLORIDE 103 MMOL/L (98-107); CREATININE SERUM 0.68 MG/DL (0.60-1.30); GFR ESTIMATED > 60; GLUCOSE 84 MG/DL (70-105); POTASSIUM 3.7 MMOL/L (3.6-5.0); SODIUM 139 MMOL/L (135-145); TOTAL PROTEIN 5.2 GM/DL (6.4-8.2)
[2018-12-01] MEDS: NS IV 1000 ML 1,000 ML IV SCH ×2 (07:24→20:19)
[2018-12-01] MEDS: ENOXAPARIN 30 MG/0.3 ML (LOVENOX) SYR SC SCH ×2 (07:46→20:20)
[2018-12-01 08:00] VITALS: BP 154/67
[2018-12-01] MEDS: SENNA W/DOCUSATE (SENOKOT S) TABLET PO SCH ×2 (09:07→20:20)
--- NOTE | 2018-12-01 11:24 | Physical Therapy Daily Note ---
PT Daily Note-Current Subjective Patient is in bed and very confused. Mental Status Patient Orientation: Confused Attachments: Huang Catheter, IV Transfers Therapy Code Descriptions/Definitions Functional [place] Measure: 0=Not Assessed/NA 4=Minimal Assistance 1=Total Assistance 5=Supervision or Setup 2=Maximal Assistance 6=Modified [place] 3=Moderate Assistance 7=Complete [place] Therapy Quality Codes: 6 Independent with activity with or without an assistive device 5 Patient requires set up or clean up by helper. Patient completes activity by themselves 4 Supervision or touching assist (CGA). [place] provide cues , steadying assist 3 The helper provides less than half the effort to complete the activity 2 The helper provides more than half the effort to complete the activity 1 Dependent. The helper does all the effort to complete an activity 7 Patient refused to complete or attempt activity 9 The patient did not perform the activity before the current illness or injury 88 Not attempted due to Medical conditions or safety concerns Transfers (B, C, W/C) (FIM): 1 Scootin Supine to/from Sit: 1 Sit to/from Stand: 1 Bed to/from Chair: 1 dependent assist with increase resistance with all mobility and retropulsive in sit and trunk flexed posture in stand with sit to stand and SPT bed to chair. Weight Bearing Right Lower Extremity: Right Full Weight Bearing Left Lower Extremity: Left Weight Bearing/Tolerated Exercises Supine Ex: Ankle pumps, Heel Slides Supine Reps: 12 (PROM left LE/AAROM right LE) Assessment Patient incontinent BM during treatment requiring dependent assist to cleanse by EARTH SCIENCE TECHNICIAN while PT performed sit to stand transfers. Patient has increase agitation with mobility. She is up in recliner with needs met. PT Fdc Goals Real Estate Executive Assistant Goals PT Real Estate Executive Assistant Goals Time Frame: Dec 08, 2018 Transfers (B,C,W/C) (FIM): 4 Gait (FIM): 2 Gait distance (FIM): 6=411-05 ft Gait Assistive Device: FWW PT Plan Treatment/Plan Treatment Plan: Continue Plan of Care Treatment Plan: Bed Mobility, Education, Functional Activity Ana, Functional Strength, Gait, Safety, Therapeutic Exercise, Transfers Treatment Duration: Dec 08, 2018 Frequency: 11 times per week Estimated Hrs Per Day: .5 hour per day Patient and/or Family Agrees t: Yes Time/GCodes Time In: 1148 Time Out: 1102 Total Billed Treatment Time: 14 Total Billed Treatment 1 visit FA 14 min DANIEL MACKAY PT Dec 01, 2018 11:24
[2018-12-01] MEDS ORDERED: OLAN10TA19 PO (11:34)
[2018-12-01] MEDS ORDERED: DIVA125C PO (11:34)
[2018-12-01] MEDS ORDERED: RISP0.253 PO (11:34)
[2018-12-01] MEDS ORDERED: MELA3TAB PO (11:34)
[2018-12-01] MEDS ORDERED: DIVA125C10 PO (11:34)
[2018-12-01] MEDS ORDERED: OLAN2.5T27 PO (11:34)
[2018-12-01] MEDS ORDERED: CITA10TA7 PO (11:36)
[2018-12-01] MEDS ORDERED: BIOT1TAB PO (11:36)
--- NOTE | 2018-12-01 11:37 | NUR ---
UPDATED MED REC WITH MEDICATION LIST FROM [facility].
--- NOTE | 2018-12-01 11:51 | ST Dysphagia Evaluation ---
Speech Evaluation-General Medical Diagnosis left hip fx Onset Date: Nov 28, 2018 Therapy Diagnosis Therapy Diagnosis: Oropharyngeal Precautions Precautions: Aspiration Precautions/Isolations: Fall Prevention, Standard Precautions Referral Referring Physician: Dr. Galo Medical History Pertinent Medical History: Dementia, HTN Reviewed History: Yes Social History Home: Alf Speech PLF/Current-Dysphagia Prior Level of Function The patient lives in a [facility]. Subjective The patient was pleasant and cooperative with the Bedside Dysphagia Evaluation (BDE) Cognitive Status Patient Orientation: Confused Patient is noted to have severe dementia. Oral Motor Skills Dentition: Natural, Tumbled, Stained Current Food Consistancy: Regular Ability to Follow Directions: Fair The patient required repetition of directions and is noted to be TAKOTNA. Oral Expression Ability: Moderate Impairment Voice Voice Phonatory-Based Quality: Breathy Voice Pitch: Moderately Low Voice Loudness: Moderately Soft/Quiet Face Facial Symmetry: Symmetrical Oral-Facial Assessment Oral-Facial Dentition: Normal Labial Seal Description: Reduced ROM Puff Cheeks: Reduced Strength Lingual Protrusion: Abnormal Lingual ROM: Normal Lingual Strength: Normal Volitional Dry Swallow: Yes Voluntary Cough: No Productive Cough: No Productive Throat Clear: No Dysphagia Evaluation Consistencies Presented: Thin Liquid, Mechanical Soft, Pureed Oral Phase: Right Pocketing, Reduced Oral Transit Pharyngeal Phase: Abs Laryngeal Elevation, Decreased A/P Bolus Transit Dietary Recommendations: Mechanical Soft Liquid Recommendations: Thin Swallowing Precautions: Alternate Liquids/Solids, Decreased Bolus 1/2 Tsp, Liquids from Spoon, Oral Supervision Staff, Pocketing, Small Bites and Sips, Sitting Upright 90 Degrees, Sitting 90 Degrees 30 Post Intake, Right Tongue Sweep Dysphagia Evaluation Summary The patient is an 83 year old female. She was admitted via ED due to a fall which resulted in a fractured hip. The patient was referred for a BDE due to choking with intake. She was on a regular with thin liquids initially. The BDE was completed with thin liquids at 1/2 tsp x3 without difficulty. She also was presented puree at 1/2 tsp and 1/2 tsp bite of mechanical soft without choking noted with either consistency. She is noted to have slight swallow onset with all presentations. She does respond well to verbal and tactile cues to initiate swallow. The patient should be checked for pocketing on the right post intake. The least restrictive diet level is Dysphagia II with thin liquids. She will need total assist with all oral intake. She should be given a small sip every other bite to assist in oral clearing. The diet level was provided to her nurse and written on the white board. Barriers to Learning Severe dementia Speech Short Term Goals Short Term Goals Short Term Goals 1) The patient will tolerate the least restrictive diet level without s/s of aspiration at 90% or greater. 2) The patient/caregiver will utilize compensatory strategies for safe oral intake at 90% or greater with minimal cues. Speech Landscaping Crew Leader Goals Landscaping Crew Leader Goals The patient will maintain adequate nutrition/hydration via safe effective swallow function, Speech-Plan Patient/Family Goals Patient/Family Goals: The patient will return to the intermediate upon hospital discharge. Treatment Plan Speech Therapy Treatment Plan: Continue Plan of Care The patient will receive skilled ST services for dysphagia. Treatment Duration: Dec 03, 2018 Frequency: 4 times per week Estimated Hrs Per Day: .25 hour per day Rehab Potential: Fair Barriers to Learning: Severe dementia, TAKOTNA Pt/Family Agrees to Plan: Yes Safety Risks/Education Teaching Recipient: Patient Teaching Methods: Demonstration, Discussion Response to Teaching: Verbalize Understanding, Reinforcement Needed Education Topics Provided: Safety of oral intake. Time Speech Therapy Time In: 11:15 Speech Therapy Time Out: 11:30 Total Billed Time: 30 Billed Treatment Time 1, MELISSA Shi Dec 01, 2018 11:51
[2018-12-01 12:00] VITALS: BP 151/65
--- NOTE | 2018-12-01 14:25 | NUR ---
Pastoral care visit.
--- NOTE | 2018-12-01 14:29 | Progress Note ---
Subjective Subjective/Events-last exam Patient up sitting in chair this AM, watching TV. Denies any pain. She was noted to have coughing with liquids and diet, swallow eval ordered. Review of Systems Date Seen by Provider: Dec 01, 2018 Time Seen by Provider: 13:00 Pulmonary: No Dyspnea; Cough Cardiovascular: No: Chest Pain, Palpitations Gastrointestinal: No: Nausea, Vomiting, Abdominal Pain, Diarrhea, Constipation Neurological: Weakness, Confusion Objective Exam Last Set of Vital Signs Vital Signs Date Time Temp Pulse Resp B/P (MAP) Pulse Ox O2 Delivery O2 Flow Rate FiO2 12/01/18 08:00 98.3 70 16 154/67 (96) 100 Nasal Cannula 3.00 Capillary Refill : Less Than 3 SecondsLess Than 3 Seconds I&O Intake and Output 12/01/18 00:00 Intake Total 1350 ml Output Total 875 ml Balance 475 ml Intake Oral 350 ml IV Total 1000 ml Output Urine Total 875 ml # Bowel Movements 2 General: Alert, Cooperative, No Acute Distress, Other (alert to self only) HEENT: Mucous Memb Moist/[place] Lungs: Clear to Auscultation, Normal Air Movement Heart: Regular Rate, No Murmurs Abdomen: Normal Bowel Sounds, Soft, No Tenderness, No Masses Extremities: Other (Trace swelling and edema present) Neuro: Other (Severe Dementia noted) Results/Procedures Lab Laboratory Tests 12/01/18 05:15: White Blood Count 6.4, Red Blood Count 3.17L, Hemoglobin 9.4L, Hematocrit 30L, Mean Corpuscular Volume 95, Mean Corpuscular Hemoglobin 30, Mean Corpuscular Hemoglobin Concent 31L, Red Cell Distribution Width 12.6, Platelet Count 245, Mean Platelet Volume 9.0, Neutrophils (%) (Auto) 80H, Lymphocytes (%) (Auto) 10L , Monocytes (%) (Auto) 8, Eosinophils (%) (Auto) 1, Basophils (%) (Auto) 0, Neutrophils # (Auto) 5.1, Lymphocytes # (Auto) 0.7L, Monocytes # (Auto) 0.5, Eosinophils # (Auto) 0.1, Basophils # (Auto) 0.0, Sodium Level 139, Potassium Level 3.7, Chloride Level 103, Carbon Dioxide Level 30, Anion Gap 6, Blood Urea Nitrogen 25H, Creatinine 0.68, Estimat Glomerular Filtration Rate > 60, BUN/Creatinine Ratio 37, Glucose Level 84, Calcium Level 8.4L, Corrected Calcium 9.4, Total Bilirubin 0.4, Aspartate Amino Transf (AST/SGOT) 15, Alanine Aminotransferase (ALT/SGPT) 12, Alkaline Phosphatase 47, Total Protein 5.2L, Albumin 2.7L Microbiology 11/28/18 MRSA Screen - Final, Complete MRSA not isolated 11/28/18 Urine Culture - Final, Complete Corynebacterium coyleae Assessment/Plan Assessment/Plan (1) Fracture of hip, left, closed Status: Acute Assessment & Plan: 12/01: POD #2, doing well, denies any pain Qualifiers: Qualified Codes: S72.002A - Fracture of unspecified part of neck of left femur, initial encounter for closed fracture (2) Dementia Status: Chronic Assessment & Plan: 12/01: Seems to be at baseline Qualifiers: Qualified Codes: G30.9 - Alzheimer's disease, unspecified; F02.80 - Dementia in other diseases classified elsewhere without behavioral disturbance (3) Dysphagia Status: Acute Assessment & Plan: 12/01: Swallow Evaluation ordered and patient needs Dysphagia Level II, need assistance with feeding Qualifiers: Qualified Codes: R13.12 - Dysphagia, oropharyngeal phase (4) DVT prophylaxis Status: Acute Assessment & Plan: - Lovenox Clinical Quality Measures DVT/VTE Risk/Contraindication: Risk Factor Score Per Nursin RFS Level Per Nursing on Admit: 4+=Very High SAMANTHA RODRIGUEZ MD Dec 01, 2018 14:29
--- NOTE | 2018-12-01 15:01 | NUR ---
Dr. Giordano notified of UOP of 75ml, no new orders received, to continue to monitor patient.
[2018-12-01 16:13] VITALS: BP 161/57
--- NOTE | 2018-12-01 19:14 | Progress Note ---
Subjective Date Seen by a Provider: Dec 01, 2018 Time Seen by a Provider: 19:11 Subjective/Events-last exam POD #2 s/p left hip hemiarthorplasty. Sitting in chair, family in room. Patient and family report she is doing well. No current complaints. Review of Systems General: No Chills Pulmonary: Cough Gastrointestinal: No: Abdominal Pain Musculoskeletal: leg pain Objective Exam Vital Signs Date Time Temp Pulse Resp B/P (MAP) Pulse Ox O2 Delivery O2 Flow Rate FiO2 12/01/18 16:13 98.8 74 20 161/57 (91) 98 Nasal Cannula 3.00 12/01/18 12:00 98.1 74 16 151/65 (93) 98 Nasal Cannula 3.00 12/01/18 08:00 98.3 70 16 154/67 (96) 100 Nasal Cannula 3.00 12/01/18 08:00 Nasal Cannula 3.00 12/01/18 04:00 97.2 68 16 150/68 (95) 95 Nasal Cannula 3.00 12/01/18 00:00 98.4 65 18 150/68 (95) 97 Nasal Cannula 3.00 11/30/18 20:15 Nasal Cannula 3.00 11/30/18 19:54 98.7 70 14 152/58 (89) 99 Nasal Cannula 3.00 I & O 12/01/18 07:00 Intake Total 350 ml Output Total 775 ml Balance -425 ml Capillary Refill : Less Than 3 SecondsLess Than 3 Seconds General Appearance: No No Apparent Distress Respiratory: No No Accessory Muscle Use, No No Respiratory Distress Extremity: Non Tender, No Calf Tenderness, Other (bandange to left hip clean and dry) Neurologic/Psychiatric: Alert, Other (hx of dementia, baseline mentation currently) Skin: Normal Color, Cool Results Lab Laboratory Tests 12/01/18 05:15: White Blood Count 6.4, Red Blood Count 3.17L, Hemoglobin 9.4L, Hematocrit 30L, Mean Corpuscular Volume 95, Mean Corpuscular Hemoglobin 30, Mean Corpuscular Hemoglobin Concent 31L, Red Cell Distribution Width 12.6, Platelet Count 245, Mean Platelet Volume 9.0, Neutrophils (%) (Auto) 80H, Lymphocytes (%) (Auto) 10L , Monocytes (%) (Auto) 8, Eosinophils (%) (Auto) 1, Basophils (%) (Auto) 0, Neutrophils # (Auto) 5.1, Lymphocytes # (Auto) 0.7L, Monocytes # (Auto) 0.5, Eosinophils # (Auto) 0.1, Basophils # (Auto) 0.0, Sodium Level 139, Potassium Level 3.7, Chloride Level 103, Carbon Dioxide Level 30, Anion Gap 6, Blood Urea Nitrogen 25H, Creatinine 0.68, Estimat Glomerular Filtration Rate > 60, BUN/Creatinine Ratio 37, Glucose Level 84, Calcium Level 8.4L, Corrected Calcium 9.4, Total Bilirubin 0.4, Aspartate Amino Transf (AST/SGOT) 15, Alanine Aminotransferase (ALT/SGPT) 12, Alkaline Phosphatase 47, Total Protein 5.2L, Albumin 2.7L Microbiology 11/28/18 MRSA Screen - Final, Complete MRSA not isolated 11/28/18 Urine Culture - Final, Complete Corynebacterium coyleae Assessment/Plan Assessment/Plan Assess & Plan/Chief Complaint assessment: pod #2 s/p left hemiarthroplasty dementia htn plan: continue current treatment PT dvt prophylaxis lives in nursing facility, orthopedically stable, ok to return to facility when ok with medicine follow up with Dr Hernandez clinic in 2 weeks for staple removal anticoagulation x 3 weeks Clinical Quality Measures DVT/VTE Risk/Contraindication: Risk Factor Score Per Nursin RFS Level Per Nursing on Admit: 4+=Very High LEYDA SOTO Dec 01, 2018 19:14
[2018-12-01 20:04] VITALS: BP 145/53
[2018-12-02] VITALS (7 sets, daily range): BP systolic 155–178; BP diastolic 53–75
[2018-12-02] MEDS: NS IV 1000 ML 1,000 ML IV SCH ×3 (00:57→20:38)
--- NOTE | 2018-12-02 01:30 | NUR ---
THIS RN TO ASSUME PATIENT CARE.
[2018-12-02 06:08] LABS: BASOPHILS % (AUTO) 0 % (0-10); EOSINOPHILS % (AUTO) 1 % (0-10); HEMATOCRIT 30 % (35-52); HEMOGLOBIN 9.5 G/DL (11.5-16.0); LYMPHOCYTES # (AUTO) 0.7 X 10^3 (1.0-4.0); LYMPHOCYTES % (AUTO) 13 % (12-44); MEAN CORPUSCULAR HEMOGLOBIN 30 PG (25-34); MEAN CORPUSCULAR HGB CONC 32 G/DL (32-36); MEAN CORPUSCULAR VOLUME 94 FL (80-99); MEAN PLATELET VOLUME 8.6 FL (7.4-10.4); MONOCYTES # (AUTO) 0.6 X 10^3 (0.0-1.0); MONOCYTES % (AUTO) 9 % (0-12); NEUTROPHILS # (AUTO) 4.5 X 10^3 (1.8-7.8); NEUTROPHILS % (AUTO) 77 % (42-75); PLATELET COUNT 244 10^3/uL (130-400); RED CELL DISTRIBUTION WIDTH 12.3 % (10.0-14.5); WHITE BLOOD COUNT 5.9 10^3/uL (4.3-11.0)
[2018-12-02 06:31] LABS: ALANINE AMINOTRANSFERASE 12 U/L (0-55); ALBUMIN 2.6 GM/DL (3.2-4.5); ALKALINE PHOSPHATASE 50 U/L (40-136); BILIRUBIN,TOTAL 0.4 MG/DL (0.1-1.0); BUN/CREATININE RATIO 38; CALCIUM 8.2 MG/DL (8.5-10.1); CARBON DIOXIDE 26 MMOL/L (21-32); CHLORIDE 104 MMOL/L (98-107); CREATININE SERUM 0.61 MG/DL (0.60-1.30); GFR ESTIMATED > 60; GLUCOSE 80 MG/DL (70-105); POTASSIUM 3.5 MMOL/L (3.6-5.0); SODIUM 142 MMOL/L (135-145); TOTAL PROTEIN 5.1 GM/DL (6.4-8.2)
--- NOTE | 2018-12-02 06:37 | Physician Query Clarification ---
PQ-Intro New Diagnosis Admission/Discharge Admission Date: Nov 28, 2018 at 11:39 Discharge Date: The medical record reflects the following clinical scenario: History/Risk Factors: Fracture of left femoral neck. Fall in [facility]. Osteoporosis Clinical Findings: 11/28/18 xray: Acute,proximally migrated simple fracture of the left femoral neck. Treatment: Bipolar left hip prosthesis. Question: What condition best reflects the above clinical scenario? Please document a response in the Progress Noter or Discharge Summary. 1. Pathologic left hip fracture due to osteoporosis. 2. Traumatic fracture of left femoral neck due to fall. 3. Other, with explanation of the clinical findings. 4. Clinically undetermined, no explanation for the clinical findings. PHYSICIAN RESPONSE What condition reflects above: 1 Please remember a lack of response to the above will prompt a phone page by CDI/Coding staff. In responding to this query, please exercise your independent professional judgment. The purpose of this communication is to more accurately reflect the complexity of your patients condition. The fact that a question is asked does not imply that any particular answer is desired or expected. Thank you for your timely response to this clarification. Requestors name: Starr Calderón [facility] Phone # ext [phone] or [phone] THIS PHYSICIAN QUERY FORM IS A PERMANENT PART OF THE MEDICAL RECORD STARR CALDERÓN Dec 02, 2018 06:37 ADELFO LANDIS DO Dec 09, 2018 07:30
[2018-12-02] MEDS: ENOXAPARIN 30 MG/0.3 ML (LOVENOX) SYR SC SCH ×2 (07:45→20:38)
[2018-12-02] MEDS: SENNA W/DOCUSATE (SENOKOT S) TABLET PO SCH ×2 (09:09→20:38)
[2018-12-02] MEDS: lisINopril 10 MG (PRINIVIL) TABLET PO SCH (10:07)
--- NOTE | 2018-12-02 10:09 | Physical Therapy Daily Note ---
PT Daily Note-Current Subjective Patient is in bed and very confused and unable to follow simple direction. Pain Numeric Pain Scale: 10-Worst Possible Pain Location: Left Location Body Site: Hip Pain Description: Acute Comment: FLACC Mental Status Patient Orientation: Confused Attachments: Huang Catheter, IV Transfers Therapy Code Descriptions/Definitions Functional [place] Measure: 0=Not Assessed/NA 4=Minimal Assistance 1=Total Assistance 5=Supervision or Setup 2=Maximal Assistance 6=Modified [place] 3=Moderate Assistance 7=Complete [place] Therapy Quality Codes: 6 Independent with activity with or without an assistive device 5 Patient requires set up or clean up by helper. Patient completes activity by themselves 4 Supervision or touching assist (CGA). [place] provide cues , steadying assist 3 The helper provides less than half the effort to complete the activity 2 The helper provides more than half the effort to complete the activity 1 Dependent. The helper does all the effort to complete an activity 7 Patient refused to complete or attempt activity 9 The patient did not perform the activity before the current illness or injury 88 Not attempted due to Medical conditions or safety concerns Transfers (B, C, W/C) (FIM): 1 Scootin Rollin Supine to/from Sit: 1 Sit to/from Stand: 1 Bed to/from Chair: 1 dependent assist with all mobility and to sit EOB. Patient is severely retropulsive in sit and with SPT bed to recliner. Weight Bearing Right Lower Extremity: Right Full Weight Bearing Left Lower Extremity: Left Weight Bearing/Tolerated Exercises Supine Ex: Ankle pumps, Heel Slides Supine Reps: 15 (PROM with patient resisting due to pain) Seated Therapy Exercises: Long arc quads Seated Reps: 15 (PROM due to inability to follow simple direction) Assessment Patient is up in recliner with needs met. Patient is incontinent BM during SPT requiring dependent assist to cleanse. PT Detention Goals Detention Goals PT Detention Goals Time Frame: Dec 08, 2018 Transfers (B,C,W/C) (FIM): 4 Gait (FIM): 2 Gait distance (FIM): 8=376-68 ft Gait Assistive Device: FWW PT Plan Treatment/Plan Treatment Plan: Continue Plan of Care Treatment Plan: Bed Mobility, Education, Functional Activity Ana, Functional Strength, Gait, Safety, Therapeutic Exercise, Transfers Treatment Duration: Dec 08, 2018 Frequency: 11 times per week Estimated Hrs Per Day: .5 hour per day Patient and/or Family Agrees t: Yes Time/GCodes Time In: 911 Time Out: 923 Total Billed Treatment Time: 12 Total Billed Treatment 1 visit EX 12 min DANIEL MACKAY PT Dec 02, 2018 10:09
--- NOTE | 2018-12-02 15:15 | NUR ---
CM/SS called and spoke with [facility], they are expecting the return of patient when she is discharged. There would need to be [facility] orders for PT/OT. Will continue to follow.
[2018-12-02] MEDS ORDERED: LISI10TA2 PO (15:25)
--- NOTE | 2018-12-02 15:28 | D/C HH Face to Face Order ---
D/C Face to Face Orders Instructions for Patient Via [facility], Patient Instructions/FollowUp: PCP will see you at facility in the next 2 weeks Physician to follow Patient: Cristiane Discharge Diet for Home: other diet (Dysphagia Diet) Patient Problems: Left hip fracture s/p repair HTN Dementia Goals for Patient: -Improvement with ADLs Patient Data-Allergies,Ht & Wt Patient Allergies: Coded Allergies: No Known Drug Allergies (Unverified , 10/01/18) Height (Feet): 5 Height (Inches): 11.00 Weight (Pounds): 117 Weight (Ounces): 3.0 Home Health Need/Face to Face Date of Face to Face: Dec 02, 2018 Clinical Findings: Generalized weakness and fatigue, Instability, Muscle weakness, Non or partial weight bearing, Unsteady gait I have seen Pt [id number]: Yes Discharged To: Other (Assisted Living Facility) Diagnosis/Conditions: Left Hip fracture Dementia HTN Patient is Homebound due to: CognItive deficits, [place] fall risk due to instabilty, Muscle weakness, Non-weight bearing Homebound Status Due to the above stated illness, injury or surgical procedure (medical condition or diagnosis) and associated clinical findings, the patient is homebound because of his/her inability to leave home except with aid of a supportive device and/or person AND leaving the home requires a considerable and taxing effort or is medically contraindicated. Pt req the following assistanc: Aid of another person Home Health Nursing Orders Home Health Services Order: Nursing Services, Recruiter Account Manager-Evaluate & Rod at, Physical Therapy-Evaluate & Treat, Wound Care-Eval/Treat Home Health Infusion Therapy Line Start Date: Nov 29, 2018 Therapy Orders Therapy Orders: OT (must have SN or PT order), Physical Therapy, PT to assess for OT Therapy Specific Orders: Eval assistive deivces, Teach strategies/cognitive deficits, Teach enviro modifications/safety, Eval & treat dysphagia, Gait training, Increase strength/endurance Certify Stmt I certify that this patient is under my care and that I, a nurse practitioner or a physician; a perinatal breastfeeding assistant working with me, had a face to face encounter that - meets the physician face to face encounter requirements with this patient as dated. SAMANTHA RODRIGUEZ MD Dec 02, 2018 15:28
--- NOTE | 2018-12-02 15:29 | Discharge Summary ---
Diagnosis/Chief Complaint Date of Admission Nov 28, 2018 at 11:39 Date of Discharge 12/02/2018 Admission Diagnosis Admission Diagnosis See problem list Discharge Diagnosis See below Problems/Diagnosis: (1) Fracture of hip, left, closed Assessment & Plan: 12/01: POD #2, doing well, denies any pain 12/02: Discharged on POD#3, patient denies any pain, Total care Qualifiers: Qualified Codes: S72.002A - Fracture of unspecified part of neck of left femur, initial encounter for closed fracture Status: Acute (2) Dementia Assessment & Plan: 12/01: Seems to be at baseline Qualifiers: Qualified Codes: G30.9 - Alzheimer's disease, unspecified; F02.80 - Dementia in other diseases classified elsewhere without behavioral disturbance Status: Chronic (3) Dysphagia Assessment & Plan: 12/01: Swallow Evaluation ordered and patient needs Dysphagia Level II, need assistance with feeding Qualifiers: Qualified Codes: R13.12 - Dysphagia, oropharyngeal phase Status: Acute (4) DVT prophylaxis Assessment & Plan: - Lovenox Status: Acute Discharge Summary-Simple/Stand Procedures Left Hip fracture repair Consultations Dr Hernandez: Ortho Surgery Discharge Physical Examination Allergies: Coded Allergies: No Known Drug Allergies (Unverified , 10/01/18) Vitals & I&Os Vital Sign - Last 12Hours Date Time Temp Pulse Resp B/P (MAP) Pulse Ox O2 Delivery O2 Flow Rate FiO2 12/02/18 12:00 97.1 63 18 178/75 (109) 98 Room Air 12/02/18 08:00 3.00 Intake and Output 12/02/18 00:00 Intake Total 1270 ml Output Total 275 ml Balance 995 ml General Appearance: Alert, Cooperative, No Acute Distress HEENT: Mucous Memb Moist/[place] Respiratory: Clear to Auscultation, Normal Air Movement Cardiovascular: Regular Rate, No Murmurs Abdominal: Normal Bowel Sounds, Soft, No Tenderness, No Masses Extremities: No Edema, No Tenderness/Swelling Skin: Other (Incision C/D/I) Hospital Course Was the Problem List Reviewed?: Yes See final discharge diagnosis. Discussion & Recommendations 83 yo F that lives in [place] that fell and suffered left hip fracture. Patient tolerated left hip repair well and denies pain on day of discharge. Patient is pleasantly demented and total care. Will be discharged back to [place]. Discharge Condition at discharge Poor prognosis Instructions to patient/family Please see electronic discharge instructions given to patient. Discharge Medications Reviewed and agree with Discharge Medication list on patient's Discharge Instruction sheet Clinical Quality Measures DVT/VTE Risk/Contraindication: Risk Factor Score Per Nursin RFS Level Per Nursing on Admit: 4+=Very High SAMANTHA RODRIGUEZ MD Dec 02, 2018 15:29
--- NOTE | 2018-12-02 19:30 | NUR ---
Allevyn dressing applied to bilateral elbows, bilateral heels for wound prevention Allevyn dressing also applied to skin tear on buttock
--- NOTE | 2018-12-02 19:38 | Progress Note ---
Subjective Subjective/Events-last exam Patient denies pain this AM. Working on discharge planning. Review of Systems Date Seen by Provider: Dec 02, 2018 Time Seen by Provider: 12:00 Pulmonary: Dyspnea Cardiovascular: No: Chest Pain, Palpitations Gastrointestinal: No: Abdominal Pain Genitourinary: Incontinence Neurological: Confusion Objective Exam Last Set of Vital Signs Vital Signs Date Time Temp Pulse Resp B/P (MAP) Pulse Ox O2 Delivery O2 Flow Rate FiO2 12/02/18 16:12 97.0 59 18 164/61 (95) 99 Room Air 12/02/18 08:00 3.00 Capillary Refill : Less Than 3 SecondsLess Than 3 Seconds I&O Intake and Output 12/02/18 00:00 Intake Total 2270 ml Output Total 525 ml Balance 1745 ml Intake Oral 270 ml IV Total 2000 ml Output Urine Total 525 ml # Bowel Movements 1 General: Alert, No Acute Distress Lungs: Clear to Auscultation, Normal Air Movement Heart: Regular Rate, No Murmurs Abdomen: Soft, No Tenderness Extremities: No Edema, No Tenderness/Swelling Results/Procedures Lab Laboratory Tests 12/02/18 05:30: White Blood Count 5.9, Red Blood Count 3.15L, Hemoglobin 9.5L, Hematocrit 30L, Mean Corpuscular Volume 94, Mean Corpuscular Hemoglobin 30, Mean Corpuscular Hemoglobin Concent 32, Red Cell Distribution Width 12.3, Platelet Count 244, Mean Platelet Volume 8.6, Neutrophils (%) (Auto) 77H, Lymphocytes (%) (Auto) 13, Monocytes (%) (Auto) 9, Eosinophils (%) (Auto) 1, Basophils (%) (Auto) 0, Neutrophils # (Auto) 4.5, Lymphocytes # (Auto) 0.7L, Monocytes # (Auto) 0.6, Eosinophils # (Auto) 0.0, Basophils # (Auto) 0.0 12/02/18 05:50: Sodium Level 142, Potassium Level 3.5L, Chloride Level 104, Carbon Dioxide Level 26, Anion Gap 12, Blood Urea Nitrogen 23H, Creatinine 0.61, Estimat Glomerular Filtration Rate > 60, BUN/Creatinine Ratio 38, Glucose Level 80, Calcium Level 8.2L, Corrected Calcium 9.3, Total Bilirubin 0.4, Aspartate Amino Transf (AST/SGOT) 17, Alanine Aminotransferase (ALT/SGPT) 12, Alkaline Phosphatase 50, Total Protein 5.1L, Albumin 2.6L Microbiology 11/28/18 MRSA Screen - Final, Complete MRSA not isolated 11/28/18 Urine Culture - Final, Complete Corynebacterium coyleae Assessment/Plan Assessment/Plan (1) Fracture of hip, left, closed Status: Acute Assessment & Plan: 12/01: POD #2, doing well, denies any pain 12/02: POD#3, denies any pain Qualifiers: Qualified Codes: S72.002A - Fracture of unspecified part of neck of left femur, initial encounter for closed fracture (2) Dementia Status: Chronic Assessment & Plan: 12/01: Seems to be at baseline Qualifiers: Qualified Codes: G30.9 - Alzheimer's disease, unspecified; F02.80 - Dementia in other diseases classified elsewhere without behavioral disturbance (3) Dysphagia Status: Acute Assessment & Plan: 12/01: Swallow Evaluation ordered and patient needs Dysphagia Level II, need assistance with feeding 12/02: Patient total care Qualifiers: Qualified Codes: R13.12 - Dysphagia, oropharyngeal phase (4) DVT prophylaxis Status: Acute Assessment & Plan: - Lovenox Clinical Quality Measures DVT/VTE Risk/Contraindication: Risk Factor Score Per Nursin RFS Level Per Nursing on Admit: 4+=Very High SAMANTHA RODRIGUEZ MD Dec 02, 2018 19:38
[2018-12-02] MEDS: HYDROcodone/APAP 5 MG/325 MG (LORTAB) TAB PO PRN (20:38)
[2018-12-03 03:03] VITALS: BP 162/65
[2018-12-03 06:39] LABS: BASOPHILS % (AUTO) 0 % (0-10); EOSINOPHILS # (AUTO) 0.1 10^3/uL (0.0-0.3); EOSINOPHILS % (AUTO) 1 % (0-10); HEMATOCRIT 32 % (35-52); HEMOGLOBIN 10.3 G/DL (11.5-16.0); LYMPHOCYTES # (AUTO) 0.7 X 10^3 (1.0-4.0); LYMPHOCYTES % (AUTO) 15 % (12-44); MEAN CORPUSCULAR HEMOGLOBIN 30 PG (25-34); MEAN CORPUSCULAR HGB CONC 32 G/DL (32-36); MEAN CORPUSCULAR VOLUME 93 FL (80-99); MEAN PLATELET VOLUME 8.2 FL (7.4-10.4); MONOCYTES # (AUTO) 0.4 X 10^3 (0.0-1.0); MONOCYTES % (AUTO) 9 % (0-12); NEUTROPHILS # (AUTO) 3.5 X 10^3 (1.8-7.8); NEUTROPHILS % (AUTO) 75 % (42-75); PLATELET COUNT 267 10^3/uL (130-400); RED CELL DISTRIBUTION WIDTH 12.6 % (10.0-14.5); WHITE BLOOD COUNT 4.7 10^3/uL (4.3-11.0)
[2018-12-03 07:03] LABS: ALANINE AMINOTRANSFERASE 11 U/L (0-55); ALBUMIN 2.7 GM/DL (3.2-4.5); ALKALINE PHOSPHATASE 53 U/L (40-136); BILIRUBIN,TOTAL 0.4 MG/DL (0.1-1.0); BUN/CREATININE RATIO 36; CALCIUM 8.4 MG/DL (8.5-10.1); CARBON DIOXIDE 24 MMOL/L (21-32); CHLORIDE 105 MMOL/L (98-107); CREATININE SERUM 0.61 MG/DL (0.60-1.30); GFR ESTIMATED > 60; GLUCOSE 78 MG/DL (70-105); POTASSIUM 3.7 MMOL/L (3.6-5.0); SODIUM 142 MMOL/L (135-145); TOTAL PROTEIN 5.3 GM/DL (6.4-8.2)
[2018-12-03 07:37] VITALS: BP 160/60
[2018-12-03] MEDS: SENNA W/DOCUSATE (SENOKOT S) TABLET PO SCH (09:05)
[2018-12-03] MEDS: lisINopril 10 MG (PRINIVIL) TABLET PO SCH (09:05)
[2018-12-03] MEDS: NS IV 1000 ML 1,000 ML IV SCH (09:05)
[2018-12-03] MEDS: ENOXAPARIN 30 MG/0.3 ML (LOVENOX) SYR SC SCH (09:06)
--- NOTE | 2018-12-03 11:57 | NUR ---
CM/SS [facility] is expecting patient back this day, discharge information sent to them. The son (Elan) will be available this day to transport back to [facility]. [facility] arranged with [facility].
[2018-12-03 12:07] VITALS: BP 157/63
--- NOTE | 2018-12-03 12:18 | Physical Therapy Daily Note ---
PT Daily Note-Current Subjective Pt asleep in bed upon arrival. Pt agrees to PT for PROM Supine EX in bed. Pain Location: No Pain Reported Mental Status Patient Orientation: Person Transfers Therapy Code Descriptions/Definitions Functional [place] Measure: 0=Not Assessed/NA 4=Minimal Assistance 1=Total Assistance 5=Supervision or Setup 2=Maximal Assistance 6=Modified [place] 3=Moderate Assistance 7=Complete [place] Therapy Quality Codes: 6 Independent with activity with or without an assistive device 5 Patient requires set up or clean up by helper. Patient completes activity by themselves 4 Supervision or touching assist (CGA). [place] provide cues , steadying assist 3 The helper provides less than half the effort to complete the activity 2 The helper provides more than half the effort to complete the activity 1 Dependent. The helper does all the effort to complete an activity 7 Patient refused to complete or attempt activity 9 The patient did not perform the activity before the current illness or injury 88 Not attempted due to Medical conditions or safety concerns Weight Bearing Right Lower Extremity: Right Full Weight Bearing Left Lower Extremity: Left Weight Bearing/Tolerated Exercises Supine Ex: Ankle pumps, Quad Set, Hip abd/add Supine Reps: 15 Treatments OCTAVE BOARD ASSEMBLER assists pt complete Supine Ex at PROM. Pt has difficulty staying awake and needs woken up several times during tx. Pt resting at end of tx with all needs met, call light next to pt. Assessment Current Status: Poor Progress Pt is not completing much w/o staff's assistance. Pt demonstrates decline. PT Youth Specialist Goals Youth Specialist Goals PT Youth Specialist Goals Time Frame: Dec 08, 2018 Transfers (B,C,W/C) (FIM): 4 Gait (FIM): 2 Gait distance (FIM): 4=459-91 ft Gait Assistive Device: FWW PT Plan Problem List Problem List: Activity Tolerance, Functional Strength, Safety, Balance, Gait, Transfer, Bed Mobility, ROM Treatment/Plan Treatment Plan: Continue Plan of Care Treatment Plan: Bed Mobility, Education, Functional Activity Ana, Functional Strength, Gait, Safety, Therapeutic Exercise, Transfers Treatment Duration: Dec 08, 2018 Frequency: 11 times per week Estimated Hrs Per Day: .5 hour per day Patient and/or Family Agrees t: Yes Safety Risks/Education Patient Education: Correct Positioning, Safety Issues Teaching Recipient: Patient Teaching Methods: Discussion Response to Teaching: Unable to Comprehend Time/GCodes Time In: 1129 Time Out: 1144 Total Billed Treatment Time: 15 Total Billed Treatment 1, EX (15m) G Codes Necessary: VIGNESH Zamora OCTAVE BOARD ASSEMBLER Dec 03, 2018 12:18
[2018-12-03] MEDS: HYDROcodone/APAP 5 MG/325 MG (LORTAB) TAB PO PRN (16:01)
[2018-12-03 16:25] VITALS: BP 157/63
== END 2018-12-03 16:25 | disposition home health service (06) | DRG 470 ==
LOC: EDUNIT# 09:12 → ER FS 09:13 → 4TH 11:39
PROVIDERS: ADMIT Internal Medicine; ATTEND Family Medicine
PROC: 0SRS01A Replacement of Left Hip Joint, Femoral Surface with Metal Synthetic Substitute, Uncemented, Open Approach (ICD-10-PCS; principal; 2018-11-29 10:29)
DX: M80.052A Age-related osteoporosis with current pathological fracture, left femur, initial encounter for fracture (principal); N39.0 Urinary tract infection, site not specified; R64 Cachexia; D62 Acute posthemorrhagic anemia; I48.91 Unspecified atrial fibrillation; D64.9 Anemia, unspecified; Z66 Do not resuscitate; G30.9 Alzheimer's disease, unspecified; F02.80 Dementia in other diseases classified elsewhere, unspecified severity, without behavioral disturbance, psychotic disturbance, mood disturbance, and anxiety; J30.2 Other seasonal allergic rhinitis; R13.12 Dysphagia, oropharyngeal phase; W19.XXXA Unspecified fall, initial encounter; Y92.129 Unspecified place in nursing home as the place of occurrence of the external cause; Z96.641 Presence of right artificial hip joint; Z87.11 Personal history of peptic ulcer disease; Z85.828 Personal history of other malignant neoplasm of skin
CPT/HCPCS: 36415; 51702; 71045; 72170; 73502; 80053; 80162; 80164; 81000; 85007; 85025; 85027; 85610; 85730; 86850; 86900; 86901; 87077; 87081; 87088; 93005; 94664; 96365